=== PATIENT | male | born 1965 | race Caucasian/White ===

== ENCOUNTER 2018-05-20 09:02 | Emergency (ER) | payer OTHER, SELFPAY ==
[2018-05-20 09:04] VITALS: BP 184/109; PULSE 66; RESP 18; TEMP 36.4; O2SAT 97; BMI 30.4
--- NOTE | 2018-05-20 09:30 | ED.VISSUMM ---
- ER Visit Summary Date of Service: 05/20/18 Chief Complaint: Nosebleed History of Present Illness: The patient is a 52 M who developed a nosebleed from his left naris since 8 AM this morning. He denies recent URI symptoms or trauma. He is not on blood thinners. States he is to have nosebleeds as a child but has not had any significant nosebleeds as an adult. Physical Examination: Blood pressure is 184/109, other vitals normal. Patient sitting upright in bed. Head neck examination does reveal active bleeding from the left nare. No sign of facial trauma. Heart is regular rate and rhythm. Test Results: [] Emergency Department Course and Treatment: Afrin and Cetacaine is applied to the left nare. A 5.5 cm Rhino Rocket is placed. Repeat evaluation bleeding is controlled at this time. A 10 cc syringe was sent with family. Patient is to follow-up with ENT in 2-3 days. Repeat blood pressure is 173/107. Patient did take his blood pressure meds just prior to arrival. Treatment Plan: [] Disposition: Discharge Impression: Epistaxis left nare status post packing This note was generated with [employer] dictation software. It may contain incorrect words, spelling, and punctuation that were not noted in review of the chart prior to signing ED Disposition - Plan for ED Patient: Chief Complaint: Nosebleed Referrals: Festus Martin MD [Primary Care Provider] -
[2018-05-20] MEDS: Oxymetazoline 0.05% 1 SPRAY SPRAY.BTL 2 SPRAY NASAL (09:33)
[2018-05-20] MEDS: Tetracaine/Benzocaine/Butamben 1 APPLIC TOPICAL (09:33)
[2018-05-20 11:14] VITALS: BP 173/107; PULSE 61; RESP 16; O2SAT 97
--- NOTE | 2018-05-20 11:20 | ED.DEP ---
ED Disposition - Plan for ED Patient: Disposition: Home or Assisted Living Chief Complaint: Nosebleed Instructions: Nosebleed Prescriptions: Amoxicillin 500 mg PO TID #10 tablet Referrals: Yaw Ritter MD [STAFF PHYSICIAN] - 2 Days
[2018-05-20] MEDS: AMOXICILLIN 500 MG CAPSULE PO (11:34)
== END 2018-05-20 11:35 | disposition home or self-care (01) ==
PROVIDERS: Emergency Provider Emergency Medicine
DX: R04.0 Epistaxis (principal)
CPT/HCPCS: 30901; 99282

== ENCOUNTER → 2019-05-30 07:25 | Outpatient (CLI) | payer OTHER, SELFPAY ==
[2019-05-23 08:07] VITALS: BMI 31.4
--- NOTE | 2019-05-30 07:37 | CT_ITS ---
STUDY: CT ABDOMEN AND PELVIS WITH CONTRAST REASON FOR EXAM: Male, 53 years old. Umbilical and abdominal pain. RADIATION DOSAGE (If Supplied By Facility): CTDIvol = ( 16.39 ) mGy, DLP = ( 1292.85 ) mGycm TECHNIQUE: Transaxial images were obtained from the dome of the diaphragm to the symphysis pubis with oral contrast. Oral and amp;amp; IV Read i-CAT and amp;amp; 100mL Isovue-300 100 was administered. Sagittal and coronal images were reconstructed. Individualized dose optimization techniques were used for this CT. COMPARISON: Comparison is made with prior study dated November 14, 2014. FINDINGS: The visualized lung bases are unremarkable. The visualized portions of the heart are within normal limits. There is decreased attenuation of the liver consistent with steatosis. Findings suggestive of a hemangioma with peripheral enhancement in the inferior aspect of the right lobe of the liver. There are multiple small gallstones. Normal spleen. Normal pancreas. Normal bilateral adrenal glands. Punctate calcification in the midpole calyx of the right kidney. Punctate calcifications seen in the upper mid pole calyx of the left kidney as well as a 4 mm calculus in the lower pole of the left kidney. Normal visualized stomach. Normal small intestine. Normal colon. The appendix is visualized and appears normal. Normal abdominal aorta. Normal inferior vena cava. There is borderline retroperitoneal lymphadenopathy with enlarged nodes no greater than 10mm in the short axis diameter. Normal urinary bladder. There is a small umbilical hernia containing fat. Grade 1 anterolisthesis of L5 on S1 with spondylolysis of the pars interarticularis of the L5 vertebrae. Disc space narrowing and disc degeneration. CT/Abdomen/Pelvis WITH Contrast IMPRESSION: Small bilateral nonobstructive intrarenal calculi. Fatty infiltration of the liver. Multiple small gallstones. Findings suggestive of a hemangioma in the inferior aspect of the right lobe of the liver. Electronically Signed: Cayden Martinez, at 15:48 EDT , Service support ,
== END ==
PROVIDERS: Family Provider Nurse Practitioner; PCP Nurse Practitioner; Referring Provider Surgery; Visit Provider Surgery
DX: R10.9 Unspecified abdominal pain (principal); K42.9 Umbilical hernia without obstruction or gangrene; K43.9 Ventral hernia without obstruction or gangrene
CPT/HCPCS: 74177; Q9967

== ENCOUNTER 2019-06-18 07:28 | Day surgery (SDC) | payer OTHER, SELFPAY ==
--- NOTE | 2019-06-04 05:28 | HP_ITS ---
Intake Vital Signs 06/04/19 Body Mass Index (BMI) 31.4 Intake Visit Reasons: CT results/ discuss surgery Customer Acquisition Manager Required: No Is patient in pain?: No Allergies ofloxacin [From Floxin] Allergy (Verified 06/04/19 15:37) Other Medications amlodipine 10 mg tablet 10 mg PO DAILY #10 tab 05/23/19 [History Confirmed 06/04/19] indomethacin 50 mg capsule 50 mg PO TID PRN #30 cap 05/23/19 [History Confirmed 06/04/19] losartan 100 mg tablet 100 mg PO DAILY #30 tab 05/23/19 [History Confirmed 06/04/19] PFSH Medical History Umbilical hernia (Acute) Hemorrhoids (Acute) Abdominal pain (Acute) Arthritis (Acute) Gout (Acute) Tingling (Acute) Numbness (Acute) Surgical History Hx of ingrown nail (Acute) Family History Father Heart disease Prostate cancer Hypertension Sister Asthma Thyroid cancer Mother Hypertension High cholesterol Social History (Updated 06/04/19 @ 17:28 by Cullen Rosa MD) Smoking Status: Never smoker second hand exposure: No alcohol intake: current alcohol intake frequency: holidays/special occasions only substance use type: does not use caffeine: Yes what type of physical activity do you participate in: none frequency: does not exercise HPI HPI HPI: ARTI SQUIRES, is a 53 M who presents to the office today for HPI HPI Surgical H&P: Yes HPI: ARTI SQUIRES, is a 53 M who presents to the office today for ongoing surgical discussion regarding an umbilical hernia and a supraumbilical ventral hernia and abnormal findings on his CT scan. The CT scan results follow and we discussed the steatosis and the hemangioma and the kidney stones and the gallstones and the umbilical hernia. Abdomen/Pelvis CT [facility] [address] [place] [address] Abdomen/Pelvis WITH Contrast MR#: [id number] Name: ARTI SQUIRES [facility] #:[id number] : 1965M 53 From: Cayden Martinez MD PCP:Paige Mcfarlane, BUSINESS TECHNOLOGY ANALYST-C Status:REG CLI Study:Abdomen/Pelvis WITH Contrast Date of Exam:05/30/19 Exam#[id number] Ordering Dr: Cullen Rosa MD STUDY: CT ABDOMEN AND PELVIS WITH CONTRAST REASON FOR EXAM: Male, 53 years old. Umbilical and abdominal pain. RADIATION DOSAGE (If Supplied By Facility): CTDIvol = ( 16.39 ) mGy, DLP = ( 1292.85 ) mGycm TECHNIQUE: Transaxial images were obtained from the dome of the diaphragm to the symphysis pubis with oral contrast. Oral and amp;amp; IV Read i-CAT and amp;amp; 100mL Isovue-300 100 was administered. Sagittal and coronal images were reconstructed. Individualized dose optimization techniques were used for this CT. COMPARISON: Comparison is made with prior study dated November 14, 2014. FINDINGS: The visualized lung bases are unremarkable. The visualized portions of the heart are within normal limits. There is decreased attenuation of the liver consistent with steatosis. Findings suggestive of a hemangioma with peripheral enhancement in the inferior aspect of the right lobe of the liver. There are multiple small gallstones. Normal spleen. Normal pancreas. Normal bilateral adrenal glands. Punctate calcification in the midpole calyx of the right kidney. Punctate calcifications seen in the upper mid pole calyx of the left kidney as well as a 4 mm calculus in the lower pole of the left kidney. Normal visualized stomach. Normal small intestine. Normal colon. The appendix is visualized and appears normal. Normal abdominal aorta. Normal inferior vena cava. There is borderline retroperitoneal lymphadenopathy with enlarged nodes no greater than 10mm in the short axis diameter. Normal urinary bladder. There is a small umbilical hernia containing fat. Grade 1 anterolisthesis of L5 on S1 with spondylolysis of the pars interarticularis of the L5 vertebrae. Disc space narrowing and disc degeneration. CT/Abdomen/Pelvis WITH Contrast IMPRESSION: Small bilateral nonobstructive intrarenal calculi. Fatty infiltration of the liver. Multiple small gallstones. Findings suggestive of a hemangioma in the inferior aspect of the right lobe of the liver. Electronically Signed: Cayden Martinez, at 15:48 EDT , Service support , Intake Visit Reasons: Umbilical hernia Customer Acquisition Manager Required: No Is patient in pain?: No Allergies ofloxacin [From Floxin] Allergy (Verified 05/23/19 08:10) Other Medications amlodipine 10 mg tablet 10 mg PO DAILY #10 tab 05/23/19 [History Confirmed 05/23/19] indomethacin 50 mg capsule 50 mg PO TID PRN #30 cap 05/23/19 [History Confirmed 05/23/19] losartan 100 mg tablet 100 mg PO DAILY #30 tab 05/23/19 [History Confirmed 05/23/19] PFSH Medical History Umbilical hernia (Acute) Hemorrhoids (Acute) Abdominal pain (Acute) Arthritis (Acute) Gout (Acute) Tingling (Acute) Numbness (Acute) Surgical History Hx of ingrown nail (Acute) Family History Father Heart disease Prostate cancer Hypertension Sister Asthma Thyroid cancer Mother Hypertension High cholesterol Social History (Updated 05/23/19 @ 09:21 by Cullen Rosa MD) Smoking Status: Never smoker second hand exposure: No alcohol intake: current alcohol intake frequency: holidays/special occasions only substance use type: does not use caffeine: Yes what type of physical activity do you participate in: none frequency: does not exercise HPI HPI HPI: ARTI SQUIRES, is a 53 M who presents to the office today for surgical consultation regarding periumbilical pain bulging and a suspected umbilical hernia. The patient is referred by Evelia Rasmussen. The patient's primary care is usually provided by Paige Mcfarlane CNP. The patient works for the [employer] in [employer]. He remains physically active and does a significant amount of lifting and straining at home. In the recent past he had a illness causing nausea vomiting coughing. He developed abdominal pain. He could palpate an umbilical hernia but also thought that there was tenderness superior to that area and also some tenderness radiating down to the left groin. He states approximately 10 years ago he had a fall from a ladder with nasal fracture and wrist fracture and abdominal discomfort which at that point he was instructed possibly represented diverticulitis. He has never had a colonoscopy. He states that he recently did complete a Cologuard test which was negative. He has no family history of colon cancer or colon polyps. HPI HPI HPI: ARTI SQUIRES, is a 53 M who presents to the office today for ROS General General: No weight change, appetite, fatigue, colon cancer, breast cancer or weakness HEENT HEENT: No difficulty swallowing, eye injury, eye surgery, swollen glands or hoarseness Endo Endocrine: No thyroid disease, diabetes mellitus, thyroid cancer, Hair loss, heat intolerance or cold intolerance Skin Skin: No rash or changing moles Musc Musculoskeletal: Yes back problems, arthritis and gout; no rheumatoid arthritis or joint pain Cardio Cardiovascular: Yes high blood pressure; no murmur, pacemaker, heart disease, atrial fibrillation, heart attack, heart stent, palpitations, shortness of breat with exertion or chest pain Psych Psychiatric: Yes depression (on and off) and anxiety; no hearing voices Resp Respiratory: No shortness of breath, No sleep apnea, No cough, No COPD, No asthma, No emphysema, No wheezing Gastro Gastrointestinal: Yes abdominal pain, No nausea or vomiting, No diarrhea, No constipation, No blood in stool, No acid reflux, Yes hemorrhoids, No ulcers, No gallbladder problem, No black,tarry stools Tristian Hematologic: No blood thinners, No blood disorders, No bleeding, No anemia, No blood clots Neuro Neurologic: Yes numbness, Yes tingling, No weakness Exam Const General: cooperative, healthy appearing, comfortable, no acute distress Nutritional Appearance: obese Orientation: alert, awake, oriented x3 HENMT Head: normal to inspection Chest Chest palpation & inspection: normal inspection of the chest Resp Effort & Inspection: normal respiratory effort Auscultation: clear to auscultation bilaterally Cardio Rate: regular rate Rhythm: regular rhythm Heart Sounds: no murmurs GI Palpation: soft, no hepatosplenomegaly Auscultation: normal bowel sounds Other: Small umbilical hernia noted. On upright posture there is a palpable rubbery fibrous fullness slightly superior and lateral to the umbilicus by approximately 3 to 4 cm. Other: Testicles are descended. Right groin solid and intact. Left groin suggestion of some fibrofatty fullness possible lipoma. Inguinal floor otherwise seems solid Musc Cervical Spine: normal cervical lordosis Neuro Cognition: normal cognition Extrem General: no calf tenderness bilaterally Psych Affect: normal affect Assessment & Plan Problems 1. Periumbilical abdominal pain R10.33 2. Umbilical hernia without obstruction and without gangrene K42.9 Plan Periumbilical abdominal pain. Although there is a palpable umbilical hernia there seems to be at least one separate defect superior into the left. Difficult to cleanly appreciate body habitus at 225 pounds. Patient also has been complaining of some radiating pain toward the left groin. There is a questionable previous history of remote diverticulitis. I did discuss with him the concept of a colonoscopy and suggested that at some point he consider perhaps a baseline examination. I recommend a abdominal pelvic CT scan and then will have the patient return. On clinical exam I suspect possibly a lipoma left groin but I am not clinically detecting a distinct groin hernia. I suspect possibly a ventral hernia in addition to his umbilical hernia. He might be a future candidate for a preperitoneal expiration repair of the periumbilical area and linea Alba. He has had an opportunity to ask and have questions answered. I very much appreciate the kind opportunity of assisting with the surgical care. Subsequent to the CT scan we will have him return to discuss treatment options. CC: Paige Mcfarlane, REFINERY OPERATOR [employer] Cullen Rosa M.D., F.A.C.S. Orders Orders: Abdomen/Pelvis WITH Contrast Today K42.9, K43.9, R10.9 Coding Level of Care Code Off vis,new,level 3 Diagnoses Periumbilical abdominal pain R10.33 Abdominal location: periumbilical Umbilical hernia without obstruction and without gangrene K42.9 Obstruction and gangrene presence: without obstruction or gangrene 05/23/19 0921<Electronically signed by Cullen Rosa MD> Date Cullen Rosa MD ROS General General: No weight change, appetite, fatigue, colon cancer, breast cancer or weakness HEENT HEENT: No difficulty swallowing, eye injury, eye surgery, swollen glands or hoarseness Endo Endocrine: No thyroid disease, diabetes mellitus, thyroid cancer, Hair loss, heat intolerance or cold intolerance Skin Skin: No rash or changing moles Musc Musculoskeletal: Yes back problems, arthritis and gout; no rheumatoid arthritis or joint pain Cardio Cardiovascular: Yes high blood pressure; no murmur, pacemaker, heart disease, atrial fibrillation, heart attack, heart stent, palpitations, shortness of breat with exertion or chest pain Psych Psychiatric: Yes depression (on and off) and anxiety; no hearing voices Resp Respiratory: No shortness of breath, No sleep apnea, No cough, No COPD, No asthma, No emphysema, No wheezing Gastro Gastrointestinal: Yes abdominal pain, No nausea or vomiting, No diarrhea, No constipation, No blood in stool, No acid reflux, Yes hemorrhoids, No ulcers, No gallbladder problem, No black,tarry stools Tristian Hematologic: No blood thinners, No blood disorders, No bleeding, No anemia, No blood clots Neuro Neurologic: No weakness Exam Cardio Heart Sounds: no murmurs Assessment & Plan Problems 1. Gallstones K80.20 2. Ventral incisional hernia without obstruction or gangrene K43.2 Plan Today was actually almost a 40-minute for [id number] appointment. I reviewed the CT scan findings with him. On clinical examination however superior to the umbilicus clinically he has a diffuse firm fibrous nodularity. Then separate from that he has a distinct small umbilical hernia. On further questioning of him today it seems apparent that he does have some postprandial symptoms of some epigastric pressure occasional right flank pain. He may very well have been having bouts of biliary colic secondary to chronic cholecystitis. I suspect that he has a defect of his linea alba and will likely require a more extensive repair. I do not believe that this is a small umbilical hernia and I believe on my review of the CT scan there is a more extensive involvement and weakness noted. I am hesitant to combine a laparoscopic cholecystectomy within a laparoscopic ventral incisional herniorrhaphy with mesh. We discussed a variety of scenarios. My preference is to perform a laparoscopic cholecystectomy with selective cholangiograms. Barring any complication then in the subsequent near future from that procedure I would recommend a laparoscopic repair of his ventral hernia and umbilical hernia. He has had an opportunity to ask and have questions answered. He did present with his today. They will discuss treatment choices and proceed as noted. I very much appreciate the kind opportunity of assisting with his surgical care. CC: Paige Mcfarlane, PACO Rosa M.D., F.A.C.S. Coding Level of Care Code Off vis,est,level 3 Diagnoses Gallstones K80.20 Ventral incisional hernia without obstruction or gangrene K43.2 06/04/19 1728 <Electronically signed by Cullen tran MD> Date _ Cullen Rosa MD Patient review and update 3 days ago while working on a table saw the patient had a board kicked back into his abdomen. It is to the right and slightly inferior to the umbilicus. There is ecchymosis with a very small superficial non-bleeding abrasion. I have reviewed this I believe that we can do an appropriate abdominal prep staying clear. As noted today is anticipated laparoscopic cholecystectomy the patient does have a umbilical and a supraumbilical hernia. I do not anticipate addressing those today and so will not be placing mesh. The patient has had an opportunity to ask and have questions answered and we will proceed as noted. Cullen Rosa M.D., F.A.C.S.
[2019-06-04 15:38] VITALS: BMI 31.4
[2019-06-14 09:24] LABS: Hematocrit 45.7 % (40-54); Hemoglobin 14.5 g/dL (13.0-16.5); Mean Corp Hgb Conc 31.7 g/dL (32-36); Mean Corpuscular Hgb 27.8 pg (27.0-32.0); Mean Corpuscular Volume 87.5 fL (80-94); Mean Platelet Vol. 10.1 fl (6.2-12.0); Platelet Count 369 K/mm3 (150-450); RBC Distribution Width CV 13.4 % (11.6-14.6); RBC Distribution Width SD 42.9 fl (35.1-43.9); Red Blood Count 5.22 M/mm3 (4.6-6.2); White Blood Count 8.6 K/mm3 (4.4-11.0)
[2019-06-14 09:54] LABS: BUN 23 mg/dL (7-18); Creatinine, Serum 0.99 mg/dL (0.70-1.30); Glucose 104 mg/dL (74-106)
[2019-06-14 09:55] LABS: ALB/GLOB Ratio 1.1 RATIO (0.9-2.4); AST(SGOT) 16 U/L (15-37); Alanine Aminotransfer ALT/SGPT 28 U/L (16-61); Albumin, Serum 3.9 g/dL (3.2-5.0); Alkaline Phosphatase 94 U/L (45-117); Anion Gap 5 (5-15); BUN/Creat Ratio 23.3 RATIO (10-20); Calcium,Total 9.4 mg/dL (8.5-10.1); Chloride 105 mmol/L (98-107); EST Glomerular Filtration Rate 84 mL/min (>60); Est Glom Filt Rate - Afr Amer 101 mL/min (>60); Globulin 3.5 g/dL (2.2-4.2); Potassium 3.9 mmol/L (3.5-5.1); Protein, Total 7.4 g/dL (6.4-8.2); Sodium Level 141 mmol/L (136-145)
[2019-06-18] VITALS (10 sets, daily range): BP systolic 130–157; BP diastolic 69–97; PULSE 57–79; RESP 16; TEMP 36.1–36.7; O2SAT 92–97; BMI 32.9
--- NOTE | 2019-06-18 08:32 | DCINST_ITS ---
Discharge Diet: Light diet - advance as tolerated - if you have questions about your diet instructions, please talk to you doctor. Discharge Activity: May Not Drive - for 3-5 days or while taking narcotic pain medicine. May shower in (days): 1 Lifting Restrictions: 10 pounds Call your doctor if your incision/area has: Continuous Slow Oozing, Sudden Increased Bleeding, Increased Pain/ Swelling, Increased Redness, Foul Smelling Discharge Call your doctor if you observe: Fever of 101 or Higher Suture Line Care: Avoid Pulling/Pushing, Avoid Pinching/Bending Additional Dressing/Incision Instructions:: Change or remove dressing in 4 days. Leave steri-strips in place for 1 week. Allergies/Adverse Reactions: Allergies ofloxacin [From Floxin] Allergy (Verified 06/12/19 09:02) Other Medications to take at Discharge amlodipine 10 mg tablet 10 mg PO DAILY #10 tab 05/23/19 indomethacin 50 mg capsule 50 mg PO TID PRN #30 cap 05/23/19 losartan 100 mg tablet 100 mg PO DAILY #30 tab 05/23/19 Fexofenadine HCl [Madeline Allergy] 180 mg PO PRN PRN 06/12/19 Primary Care Physician: Paige Mcfarlane, ARSH-C [Primary Care Provider] - Test Results: Test results from this visit will be discussed in further detail at your follow- up appointment, if applicable. Please Follow Up With: Cullen Rosa MD - [phone] When: Call to make an appointment to be seen in about 10 days.
[2019-06-18] MEDS: Lactated Ringers 1,000 ML 100 ML IV ×2 (08:48→11:16)
[2019-06-18] MEDS: Cefazolin 2 GM in 0.9% Normal Saline 100 ML IV (09:02)
--- NOTE | 2019-06-18 09:20 | GALL_PTH ---
PATIENT: ARTI SQUIRES LOC[place] [facility] [place][id number] AGE/SX: 53/M ROOM: RE06/18/[address]: Dr. Cullen Rosa MD : 1965 BED: DIS: 06/18/2019 SPEC #: [id number] RECD: 06/18/19 11:31 STATUS: AMPARO WENDY #: [id number] LINDA: 06/18/19 09:[address]: Cullen Rosa DEPT: SURGICAL PATHOLOGY RECD BY: Morenita Smith ENTERED: 06/18/19 11:57 SP TYPE: ARMANI PATEL DR: Paige Mcfarlane, SPLITTING MACHINE TENDER-Gilbert Tissues: Gallbladder, NOS Procedures: Surgery Specimen Level III HEADER OPERATION: Laparoscopic cholecystectomy with IOC PRE-OP DIAGNOSIS: Gallstones TISSUE SUBMITTED: Gallbladder MICROSCOPIC DIAGNOSIS Gallbladder, cholecystectomy: Chronic cholecystitis, cholelithiasis and cholesterolosis. SJ:vero 06/19/19 MICROSCOPIC DESCRIPTION Slides are reviewed. GROSS DESCRIPTION Received is one container labeled with the patient's name and designated gallbladder. The specimen consists of a gallbladder measuring 8 cm in length and up to 3.5 cm in diameter. The external surface is pink-wilkinson, smooth and glistening for the most part. Focally it is granular, hemorrhagic and contains cautery artifact. The gallbladder contains green-yellow mucoid bile and one round, mulberry stone measuring 1.5 cm in diameter. The mucosa also shows several yellowish streaks consistent with cholesterolosis. The mucosa is bile-stained and without any mass lesions. The gallbladder wall measures up to 0.3 cm in thickness. Freight Solicitor sections from the gallbladder and the cystic duct are submitted in one cassette. / SJ:vero 06/18/19 TC:3 [facility]: [id number]
--- NOTE | 2019-06-18 09:20 | RAD_ITS ---
STUDY: INTRAOPERATIVE CHOLANGIOGRAM. REASON FOR EXAM: Male, 53 years old. Laparoscopic cholecystectomy. FLUOROSCOPY TIME (if supplied): ( 12.3 seconds ) minutes/seconds TECHNIQUE: Intraoperative cholangiogram was performed by the surgeon. Imaging was submitted. COMPARISON: None. FINDINGS: The visualized intrahepatic biliary ducts are unremarkable. The common bile duct is not dilated. There is free flow of contrast into the duodenum. RAD/Cholangiogram/ O R,Initial IMPRESSION: Unremarkable intraoperative cholangiogram. Electronically Signed: Cayden Martinez, at 13:50 EDT , Service support ,
--- NOTE | 2019-06-18 10:10 | OP.PCM_ITS ---
Problem List (1) Gallstones Status: Acute Report of Operation Date of Procedure: 06/18/19 Pre-Operative Diagnosis: Chronic cholecystitis cholelithiasis Post-Operative Diagnosis: Chronic cholecystitis cholelithiasis Surgery/Procedure Performed:: Laparoscopic cholecystectomy with cholangiography Description of Surgical Findings:: Timeout and informed consent was obtained. 53-year-old gentleman was taken the operating placement table underwent general endotracheal intubation anesthesia. Ancef 2 g given intravenous preoperatively. The abdomen was sterilely prepped and draped. To the right of the umbilicus a OpSite dressing was placed to occlude access to a small abrasion. 0.5% Marcaine was used as a local anesthetic throughout the procedure total 30 cc was used. Skin sites were pre- anesthetized. A vertical infraumbilical incision was created holding sutures of 0 Vicryl placed varies needle inserted saline drop test performed the abdomen was insufflated with CO2 to a pressure of 10 mid cervical pressure Gracie trocar inserted 10 lap scope inserted no concern trocar injuries and direct physician the abdomen is inspected. There is evidence of a hernia at the superior portion of the umbilicus with incarcerated omentum. Patient had sick quite a fatty omentum. There was a barrel belly. Getting access laxity to the liver noted to be filled with steatohepatitis was difficult. 5-minute trocar sites were placed in the epigastric mid abdomen the right upper quadrant. Gallbladder distracted with mild adhesions of omentum these were dissected free the infundibular was dissected free until clearly the cystic duct and cystic artery were remaining. 2 hemo-lock clips were placed on the cystic artery proximally distally prior to transecting it. Hem-o-aubrey clip was placed on the cystic duct incision made in the cystic duct and through a 14-gauge Angiocath a cholangiogram catheter was placed fluoroscopically control cholangiograms were obtained. This demonstrated normal ductal anatomy. The clench Heri catheter was removed to Hem-o-aubrey clips were placed on the cystic duct stump prior to transecting it. The gallbladder was then dissected free from the liver bed using electrocautery. Complete hemostasis was intact. The gallbladder was placed in a retrieval bag. The right upper quadrant was irrigated and aspirated free of excess fluid. It is of note that the gallbladder and the removal from the liver bed was noted to be quite fatty. There appeared to be almost edema pain plane possibly suggestive chronic inflammation. On inspection of the umbilical area there was incarcerated omentum within the umbilical hernia. The incision that I had created was a inferior to this. In order to get the gallbladder out the skin and fascia incision had to be l engthened. That then allowed for removal of the gallbladder. I then had to close the fascia with a running 0 Vicryl. The abdomen was allowed to deflate the CO2. Skin edges approximate interrupted 4 Monocryl subdermal stitches. Steri-Strips Telfa and OpSite dressings applied. Sponge and instrument and needle counts were reported the surgeon to be correct. Blood loss was minimal. The patient tolerated the procedure well was taken to recovery room in satisfactory condition without apparent complication. Specimens gallbladder. Drains none. Blood loss minimal. Cullen Rosa M.D., F.A.C.S. Type of Anesthesia:: General Anesthesiologist: Argelia Jones
[2019-06-18] MEDS: Bupivacaine Mpf 0.5% 30 ML VIAL (10:14)
[2019-06-18] MEDS: HYDROcodone Bitartrate/Apap 5/325 Tablet PO (11:42)
== END 2019-06-18 13:40 | disposition home or self-care (01) ==
LOC: SDC 07:29 → AC 07:29
PROVIDERS: Family Provider Nurse Practitioner; PCP Nurse Practitioner; Referring Provider Surgery; Visit Provider Surgery
PROC: (CPT 47610; principal; 2019-06-18 09:00)
DX: K80.10 Calculus of gallbladder with chronic cholecystitis without obstruction (principal); R10.33 Periumbilical pain; K43.2 Incisional hernia without obstruction or gangrene; K42.9 Umbilical hernia without obstruction or gangrene; E66.9 Obesity, unspecified; Z88.1 Allergy status to other antibiotic agents; Z68.31 Body mass index [BMI] 31.0-31.9, adult
CPT/HCPCS: 47563; 36415; 74300; 76000; 80053; 85027; 88304; 93005; J7120; J2405

== ENCOUNTER 2019-08-14 07:23 | Day surgery (SDC) | payer OTHER, SELFPAY ==
--- NOTE | 2019-06-04 05:28 | HP_ITS ---
Intake Vital Signs 06/04/19 Body Mass Index (BMI) 31.4 Intake Visit Reasons: CT results/ discuss surgery Pelt Grader Required: No Is patient in pain?: No Allergies ofloxacin [From Floxin] Allergy (Verified 06/04/19 15:37) Other Medications amlodipine 10 mg tablet 10 mg PO DAILY #10 tab 05/23/19 [History Confirmed 06/04/19] indomethacin 50 mg capsule 50 mg PO TID PRN #30 cap 05/23/19 [History Confirmed 06/04/19] losartan 100 mg tablet 100 mg PO DAILY #30 tab 05/23/19 [History Confirmed 06/04/19] PFSH Medical History Umbilical hernia (Acute) Hemorrhoids (Acute) Abdominal pain (Acute) Arthritis (Acute) Gout (Acute) Tingling (Acute) Numbness (Acute) Surgical History Hx of ingrown nail (Acute) Family History Father Heart disease Prostate cancer Hypertension Sister Asthma Thyroid cancer Mother Hypertension High cholesterol Social History (Updated 06/04/19 @ 17:28 by Cullen Rosa MD) Smoking Status: Never smoker second hand exposure: No alcohol intake: current alcohol intake frequency: holidays/special occasions only substance use type: does not use caffeine: Yes what type of physical activity do you participate in: none frequency: does not exercise HPI HPI HPI: ARTI SQUIRES, is a 53 M who presents to the office today for HPI HPI Surgical H&P: Yes HPI: ARTI SQUIRES, is a 53 M who presents to the office today for ongoing surgical discussion regarding an umbilical hernia and a supraumbilical ventral hernia and abnormal findings on his CT scan. The CT scan results follow and we discussed the steatosis and the hemangioma and the kidney stones and the gallstones and the umbilical hernia. Abdomen/Pelvis CT [facility] Services [address] [place] [address] Abdomen/Pelvis WITH Contrast MR#: [id number] Name: ARTI SQUIRES [facility] #:[id number] : 1965M 53 From: Cayden Martinez MD PCP:Paige Mcfarlane, RACQUET MAKER-C Status:REG CLI Study:Abdomen/Pelvis WITH Contrast Date of Exam:05/30/19 Exam#[id number] Ordering Dr: Cullen Rosa MD STUDY: CT ABDOMEN AND PELVIS WITH CONTRAST REASON FOR EXAM: Male, 53 years old. Umbilical and abdominal pain. RADIATION DOSAGE (If Supplied By Facility): CTDIvol = ( 16.39 ) mGy, DLP = ( 1292.85 ) mGycm TECHNIQUE: Transaxial images were obtained from the dome of the diaphragm to the symphysis pubis with oral contrast. Oral and amp;amp; IV Read i-CAT and amp;amp; 100mL Isovue-300 100 was administered. Sagittal and coronal images were reconstructed. Individualized dose optimization techniques were used for this CT. COMPARISON: Comparison is made with prior study dated November 14, 2014. FINDINGS: The visualized lung bases are unremarkable. The visualized portions of the heart are within normal limits. There is decreased attenuation of the liver consistent with steatosis. Findings suggestive of a hemangioma with peripheral enhancement in the inferior aspect of the right lobe of the liver. There are multiple small gallstones. Normal spleen. Normal pancreas. Normal bilateral adrenal glands. Punctate calcification in the midpole calyx of the right kidney. Punctate calcifications seen in the upper mid pole calyx of the left kidney as well as a 4 mm calculus in the lower pole of the left kidney. Normal visualized stomach. Normal small intestine. Normal colon. The appendix is visualized and appears normal. Normal abdominal aorta. Normal inferior vena cava. There is borderline retroperitoneal lymphadenopathy with enlarged nodes no greater than 10mm in the short axis diameter. Normal urinary bladder. There is a small umbilical hernia containing fat. Grade 1 anterolisthesis of L5 on S1 with spondylolysis of the pars interarticularis of the L5 vertebrae. Disc space narrowing and disc degeneration. CT/Abdomen/Pelvis WITH Contrast IMPRESSION: Small bilateral nonobstructive intrarenal calculi. Fatty infiltration of the liver. Multiple small gallstones. Findings suggestive of a hemangioma in the inferior aspect of the right lobe of the liver. Electronically Signed: Cayden Martinez, at 15:48 EDT , Service support , Intake Visit Reasons: Umbilical hernia Pelt Grader Required: No Is patient in pain?: No Allergies ofloxacin [From Floxin] Allergy (Verified 05/23/19 08:10) Other Medications amlodipine 10 mg tablet 10 mg PO DAILY #10 tab 05/23/19 [History Confirmed 05/23/19] indomethacin 50 mg capsule 50 mg PO TID PRN #30 cap 05/23/19 [History Confirmed 05/23/19] losartan 100 mg tablet 100 mg PO DAILY #30 tab 05/23/19 [History Confirmed 05/23/19] PFSH Medical History Umbilical hernia (Acute) Hemorrhoids (Acute) Abdominal pain (Acute) Arthritis (Acute) Gout (Acute) Tingling (Acute) Numbness (Acute) Surgical History Hx of ingrown nail (Acute) Family History Father Heart disease Prostate cancer Hypertension Sister Asthma Thyroid cancer Mother Hypertension High cholesterol Social History (Updated 05/23/19 @ 09:21 by Cullen Rosa MD) Smoking Status: Never smoker second hand exposure: No alcohol intake: current alcohol intake frequency: holidays/special occasions only substance use type: does not use caffeine: Yes what type of physical activity do you participate in: none frequency: does not exercise HPI HPI HPI: ARTI SQUIRES, is a 53 M who presents to the office today for surgical consultation regarding periumbilical pain bulging and a suspected umbilical hernia. The patient is referred by Evelia Rasmussen. The patient's primary care is usually provided by Paige Mcfarlane CNP. The patient works for the [employer] in [place]. He remains physically active and does a significant amount of lifting and straining at home. In the recent past he had a illness causing nausea vomiting coughing. He developed abdominal pain. He could palpate an umbilical hernia but also thought that there was tenderness superior to that area and also some tenderness radiating down to the left groin. He states approximately 10 years ago he had a fall from a ladder with nasal fracture and wrist fracture and abdominal discomfort which at that point he was instructed possibly represented diverticulitis. He has never had a colonoscopy. He states that he recently did complete a Cologuard test which was negative. He has no family history of colon cancer or colon polyps. HPI HPI HPI: ARTI SQUIRES, is a 53 M who presents to the office today for ROS General General: No weight change, appetite, fatigue, colon cancer, breast cancer or weakness HEENT HEENT: No difficulty swallowing, eye injury, eye surgery, swollen glands or hoarseness Endo Endocrine: No thyroid disease, diabetes mellitus, thyroid cancer, Hair loss, heat intolerance or cold intolerance Skin Skin: No rash or changing moles Musc Musculoskeletal: Yes back problems, arthritis and gout; no rheumatoid arthritis or joint pain Cardio Cardiovascular: Yes high blood pressure; no murmur, pacemaker, heart disease, atrial fibrillation, heart attack, heart stent, palpitations, shortness of breat with exertion or chest pain Psych Psychiatric: Yes depression (on and off) and anxiety; no hearing voices Resp Respiratory: No shortness of breath, No sleep apnea, No cough, No COPD, No asthma, No emphysema, No wheezing Gastro Gastrointestinal: Yes abdominal pain, No nausea or vomiting, No diarrhea, No constipation, No blood in stool, No acid reflux, Yes hemorrhoids, No ulcers, No gallbladder problem, No black,tarry stools Tristian Hematologic: No blood thinners, No blood disorders, No bleeding, No anemia, No blood clots Neuro Neurologic: Yes numbness, Yes tingling, No weakness Exam Const General: cooperative, healthy appearing, comfortable, no acute distress Nutritional Appearance: obese Orientation: alert, awake, oriented x3 HENMT Head: normal to inspection Chest Chest palpation & inspection: normal inspection of the chest Resp Effort & Inspection: normal respiratory effort Auscultation: clear to auscultation bilaterally Cardio Rate: regular rate Rhythm: regular rhythm Heart Sounds: no murmurs GI Palpation: soft, no hepatosplenomegaly Auscultation: normal bowel sounds Other: Small umbilical hernia noted. On upright posture there is a palpable rubbery fibrous fullness slightly superior and lateral to the umbilicus by approximately 3 to 4 cm. Other: Testicles are descended. Right groin solid and intact. Left groin suggestion of some fibrofatty fullness possible lipoma. Inguinal floor otherwise seems solid Musc Cervical Spine: normal cervical lordosis Neuro Cognition: normal cognition Extrem General: no calf tenderness bilaterally Psych Affect: normal affect Assessment & Plan Problems 1. Periumbilical abdominal pain R10.33 2. Umbilical hernia without obstruction and without gangrene K42.9 Plan Periumbilical abdominal pain. Although there is a palpable umbilical hernia there seems to be at least one separate defect superior into the left. Difficult to cleanly appreciate body habitus at 225 pounds. Patient also has been complaining of some radiating pain toward the left groin. There is a questionable previous history of remote diverticulitis. I did discuss with him the concept of a colonoscopy and suggested that at some point he consider perhaps a baseline examination. I recommend a abdominal pelvic CT scan and then will have the patient return. On clinical exam I suspect possibly a lipoma left groin but I am not clinically detecting a distinct groin hernia. I suspect possibly a ventral hernia in addition to his umbilical hernia. He might be a future candidate for a preperitoneal expiration repair of the periumbilical area and linea Alba. He has had an opportunity to ask and have questions answered. I very much appreciate the kind opportunity of assisting with the surgical care. Subsequent to the CT scan we will have him return to discuss treatment options. CC: Paige Mcfarlane, [employer]OR Cullen Rosa M.D., F.A.C.S. Orders Orders: Abdomen/Pelvis WITH Contrast Today K42.9, K43.9, R10.9 Coding Level of Care Code Off vis,new,level 3 Diagnoses Periumbilical abdominal pain R10.33 Abdominal location: periumbilical Umbilical hernia without obstruction and without gangrene K42.9 Obstruction and gangrene presence: without obstruction or gangrene 05/23/19 0921<Electronically signed by Cullen Rosa MD> Date Cullen Rosa MD ROS General General: No weight change, appetite, fatigue, colon cancer, breast cancer or weakness HEENT HEENT: No difficulty swallowing, eye injury, eye surgery, swollen glands or hoarseness Endo Endocrine: No thyroid disease, diabetes mellitus, thyroid cancer, Hair loss, heat intolerance or cold intolerance Skin Skin: No rash or changing moles Musc Musculoskeletal: Yes back problems, arthritis and gout; no rheumatoid arthritis or joint pain Cardio Cardiovascular: Yes high blood pressure; no murmur, pacemaker, heart disease, atrial fibrillation, heart attack, heart stent, palpitations, shortness of breat with exertion or chest pain Psych Psychiatric: Yes depression (on and off) and anxiety; no hearing voices Resp Respiratory: No shortness of breath, No sleep apnea, No cough, No COPD, No asthma, No emphysema, No wheezing Gastro Gastrointestinal: Yes abdominal pain, No nausea or vomiting, No diarrhea, No constipation, No blood in stool, No acid reflux, Yes hemorrhoids, No ulcers, No gallbladder problem, No black,tarry stools Tristian Hematologic: No blood thinners, No blood disorders, No bleeding, No anemia, No blood clots Neuro Neurologic: No weakness Exam Cardio Heart Sounds: no murmurs Assessment & Plan Problems 1. Gallstones K80.20 2. Ventral incisional hernia without obstruction or gangrene K43.2 Plan Today was actually almost a 40-minute for [id number] appointment. I reviewed the CT scan findings with him. On clinical examination however superior to the umbilicus clinically he has a diffuse firm fibrous nodularity. Then separate from that he has a distinct small umbilical hernia. On further questioning of him today it seems apparent that he does have some postprandial symptoms of some epigastric pressure occasional right flank pain. He may very well have been having bouts of biliary colic secondary to chronic cholecystitis. I suspect that he has a defect of his linea alba and will likely require a more extensive repair. I do not believe that this is a small umbilical hernia and I believe on my review of the CT scan there is a more extensive involvement and weakness noted. I am hesitant to combine a laparoscopic cholecystectomy within a laparoscopic ventral incisional herniorrhaphy with mesh. We discussed a variety of scenarios. My preference is to perform a laparoscopic cholecystectomy with selective cholangiograms. Barring any complication then in the subsequent near future from that procedure I would recommend a laparoscopic repair of his ventral hernia and umbilical hernia. He has had an opportunity to ask and have questions answered. He did present with his today. They will discuss treatment choices and proceed as noted. I very much appreciate the kind opportunity of assisting with his surgical care. CC: Paige Mcfarlane, PACO Rosa M.D., F.A.C.S. Coding Level of Care Code Off vis,est,level 3 Diagnoses Gallstones K80.20 Ventral incisional hernia without obstruction or gangrene K43.2 06/04/19 1728 <Electronically signed by Cullen tran MD> Date _ Cullen Rosa MD
[2019-06-04 15:38] VITALS: BMI 31.4
[2019-06-18 08:00] VITALS: BMI 32.9
[2019-08-09 12:39] LABS: Hematocrit 43.4 % (40-54); Hemoglobin 13.9 g/dL (13.0-16.5); Mean Corpuscular Hgb 27.8 pg (27.0-32.0); Mean Corpuscular Volume 86.8 fL (80-94); Mean Platelet Vol. 9.8 fl (6.2-12.0); Platelet Count 343 K/mm3 (150-450); RBC Distribution Width CV 13.4 % (11.6-14.6); RBC Distribution Width SD 41.9 fl (35.1-43.9); White Blood Count 8.7 K/mm3 (4.4-11.0)
[2019-08-09 13:04] LABS: Anion Gap 3 (5-15); BUN 21 mg/dL (7-18); BUN/Creat Ratio 14.4 RATIO (10-20); Calcium,Total 9.1 mg/dL (8.5-10.1); Chloride 109 mmol/L (98-107); Creatinine, Serum 1.46 mg/dL (0.70-1.30); EST Glomerular Filtration Rate 53 mL/min (>60); Est Glom Filt Rate - Afr Amer 65 mL/min (>60); Glucose 105 mg/dL (74-106); Potassium 3.8 mmol/L (3.5-5.1); Sodium Level 142 mmol/L (136-145)
[2019-08-14] VITALS (11 sets, daily range): BP systolic 98–158; BP diastolic 68–85; PULSE 58–78; RESP 16–18; TEMP 36.2–36.7; O2SAT 91–97; BMI 32.4
[2019-08-14] MEDS: Lactated Ringers 1,000 ML 15 ML IV ×2 (07:51→09:45)
--- NOTE | 2019-08-14 08:17 | HP.PCM_ITS ---
Problem List (1) Ventral incisional hernia without obstruction or gangrene Status: Acute History of Present Illness Date of Admission: 08/14/19 The patient is a 53 year old M who presents for a planned laparoscopic repair of a umbilical and supraumbilical ventral hernia. On June 18 patient had a laparoscopic cholecystectomy. He had had a symptomatic hernia prior to that but due to the planned extensiveness of the repair and findings that were felt to be consistent with intermittent biliary colic like to proceed with the cholecystectomy first and then proceed with a more definitive repair of his ventral hernia. His complaint emanates from the umbilicus superiorly. His most recent incision was infraumbilical and the hernia was not interacted with at that time. He states particularly when he coughs that he has discomfort at the [place] portion of the umbilicus. Otherwise is done well since his cholecystectomy. Past Medical History Medical History: Medical History (Last Reviewed 06/04/19 @ 15:37 by Anaid Rhodes) Ventral incisional hernia without obstruction or gangrene (Acute) K43.2 Gallstones (Acute) K80.20 Umbilical hernia (Acute) K42.9 Hemorrhoids (Acute) K64.9 Abdominal pain (Acute) R10.9 Arthritis (Acute) M19.90 Gout (Acute) M10.9 Tingling (Acute) R20.2 Numbness (Acute) R20.0 Allergies ofloxacin [From Floxin] Allergy (Verified 08/14/19 07:46) Other Home Medications: Ambulatory Orders Medication Instructions Recorded amlodipine 10 mg tablet 10 mg PO DAILY #10 tab 05/23/19 indomethacin 50 mg capsule 50 mg PO TID PRN #30 cap 05/23/19 losartan 100 mg tablet 100 mg PO DAILY #30 tab 05/23/19 Fexofenadine HCl [Madeline Allergy] 180 mg PO PRN PRN 06/12/19 Surgical History: Surgical History (Last Reviewed 06/04/19 @ 15:37 by Anaid Rhodes) Hx of ingrown nail (Acute) Z87.2 bilateral 1st digit Smoking Status: Never smoker Tobacco Use: Non-smoker Review of Systems Constitutional: Denies: Anorexia HEENT: Denies: Difficulty Swallowing Cardiovascular: Denies: Chest Pain Respiratory: Denies: Shortness of Breath Gastrointestinal: Denies: Abdominal Pain, Melena Endocrine: Denies: Change in Body Habitus VTE Information - Inpt Only VTE Present on Admission: No - Physical Exam Vitals/I&O's: Vital Signs Temp Pulse Resp BP Pulse Ox 98.1 F 67 16 142/84 H 95 08/14/19 07:46 08/14/19 07:46 08/14/19 07:46 08/14/19 07:46 08/14/19 07:46 Oxygen Delivery Method Room Air Weight: 232 lb 9.403 oz Body Mass Index (BMI) 32.4 General: Alert, Oriented x3, Cooperative, No apparent distress Oral: Moist Mucosa Lungs: Clear to auscultation Cardiovascular: Regular rate, Regular Rhythm Abdomen: Bowel Sounds Present, Soft, - - Healing infraumbilical incision and laparoscopic port site incisions, palpable defect at the umbilicus and superiorly, no focal mass, no tenderness, Extremities: No Calf Tenderness Neurological: - - Normal cognition Psych/Mental Status: Normal Affect Current Medications Lactated Ringer's () 1,000 mls @ 15 mls/hr IV .Q48H KRISTIE Stop: 08/16/19 06:59 Last Admin: 08/14/19 07:51 Dose: 15 mls/hr Documented by: Assessment/Plan All Active Problems (Last Reviewed 06/04/19 @ 15:37 by Anaid Rhodes) Ventral incisional hernia without obstruction or gangrene (Acute) Gallstones (Acute) Hx of ingrown nail (Acute) Umbilical hernia (Acute) Hemorrhoids (Acute) Abdominal pain (Acute) Arthritis (Acute) Gout (Acute) Tingling (Acute) Numbness (Acute) I have offered the patient a laparoscopic ventral incisional herniorrhaphy. He is aware that we will utilize mesh. He is aware of the technique, benefits, r isks, alternatives. He has had an opportunity to ask and have questions answered. We will proceed as noted. Cullen Rosa M.D., F.A.C.S.
--- NOTE | 2019-08-14 08:24 | DCINST_ITS ---
Discharge Diet: Light diet - advance as tolerated - if you have questions about your diet instructions, please talk to you doctor. Discharge Activity: May Not Drive - for 1 week or while taking narcotic pain medicine. May shower in (days): 1 Lifting Restrictions: 10 pounds Call your doctor if your incision/area has: Continuous Slow Oozing, Sudden Increased Bleeding, Increased Pain/ Swelling, Increased Redness, Foul Smelling Discharge Call your doctor if you observe: Fever of 101 or Higher Suture Line Care: Avoid Pulling/Pushing, Avoid Pinching/Bending Additional Dressing/Incision Instructions:: Change or remove dressing in 4 days. Leave steri-strips in place for 1 week. Allergies/Adverse Reactions: Allergies ofloxacin [From Floxin] Allergy (Verified 08/14/19 07:46) Other Medications to take at Discharge amlodipine 10 mg tablet 10 mg PO DAILY #10 tab 05/23/19 indomethacin 50 mg capsule 50 mg PO TID PRN #30 cap 05/23/19 losartan 100 mg tablet 100 mg PO DAILY #30 tab 05/23/19 Fexofenadine HCl [Madeline Allergy] 180 mg PO PRN PRN 06/12/19 Hydrocodone Bitart/Apap 5-325 [[place] 5MG-325MG] 1 tablet PO Q6H PRN PRN 3 Days #8 tablet 08/14/19 The following prescriptions were given: Hydrocodone Bitart/Apap 5-325 [[place] 5MG-325MG] 1 tablet PO Q6H PRN PRN 3 Days #8 tablet PRN Reason: Pain Transmission Status: Sent to [facility]30 Orders to be completed after discharge: Basic Metabolic Profile (BMP) Time Frame: 08/07/19, Facility: [facility], Location: Laboratory CBC-Complete Blood Cnt No Diff Time Frame: 08/07/19, Facility: [facility], Location: Laboratory Primary Care Physician: Paige Mcfarlane NP-C [Primary Care Provider] - Test Results: Test results from this visit will be discussed in further detail at your follow- up appointment, if applicable. Please Follow Up With: Cullen Rosa MD - [phone] When: Call to make an appointment to be seen in about 10 days.
[2019-08-14] MEDS: Cefazolin 2 GM in 0.9% Normal Saline 100 ML IV (08:36)
[2019-08-14] MEDS: BUPIVACAINE LIPOSOME/PF 20 ML VIAL OPERA.SITE (09:58)
[2019-08-14] MEDS: Bupivacaine Mpf 0.5% 30 ML VIAL (09:58)
--- NOTE | 2019-08-14 10:06 | PCM.OPRPT ---
Problem List (1) Ventral incisional hernia without obstruction or gangrene Status: Acute Report of Operation Date of Procedure: 08/14/19 Pre-Operative Diagnosis: Incarcerated supraumbilical ventral hernia Post-Operative Diagnosis: Multi defect incarcerated supraumbilical ventral hernia Surgery/Procedure Performed:: Laparoscopic ventral herniorrhaphy with ventral light ST mesh. Reference #[id number]. Lot number [id number]. Expiry date 02/22/2021. Secure strap lot number [id number]. Expiry date February 2021 Description of Surgical Findings:: Timeout and informed consent was obtained. 53-year-old gentleman was taken operating placement table underwent general endotracheal intubation anesthesia. Ancef 2 g given intravenously preoperatively. The abdomen sterilely prepped draped. Ioban draping was used. 30 cc of 0.5% Marcaine was diluted with 50 cc of saline and added to 20 cc of Exparel. This was used as a local anesthetic. Skin sites were pre-anesthetized. The left upper quadrant 5 mm incision was created and using a Visiport type technology direct access was gained to the abdomen. The abdomen was insufflated with CO2 to pressure 10 circular pressure. There is evidence of incarcerated omentum within a multi-defect superior to the umbilicus. 5-minute trochars were placed in the left midabdomen. 2 more from a trochars in the right midabdomen. The omentum was dissected free using electrocauterize scissors. Hemostasis was intact. 4 separate defects were noted. I selected a 17.8 x 22.[address] mesh. I did shorten that both lengthwise and with ferrer. I then put 4 corner sutures of 2-0 Prolene. I placed a telemeter trocar supraumbilically and then inserted the mesh through that trocar. I unfurled the mesh. Using a grainy needle and stab incisions the sutures were used to parachuted the mesh up to the abdominal wall. Very nice positional lie was achieved. The sutures were secured. I then used secure strap at 2 cm avulsed completely around the mesh. I used secure strap to complete the mesh to avoid any seroma formation. Excellent coverage of the defect area was achieved. In the right lower quadrant there was some bleeding from the inferior epigastric which I gently secured using a 0 Vicryl grainy needle and a simple suture to just gently elevate that area. There is been some preperitoneal fatty tissue inferiorly that I draped back over the mesh and secured with a secure strap. I then performed a bilateral tap block using laparoscopic visualization I put local in the transabdominal plane at 2 cm intervals clip completely bilateral subcostally and lateral abdomen. I felt that index achieved an excellent block. The umbilical wound was closed with a deep layer [id number] suture of 0 Vicryl. Skin edges were approximated with interrupted sutures of 4-0 Monocryl. Steri-Strips Telfa and OpSite dressings applied. Specimens none. Drains none. Blood loss minimal. The patient was taken to recovery area in satisfactory edition without apparent complication Cullen Rosa M.D., F.A.C.S. Type of Anesthesia:: General Anesthesiologist: Jeannette Horner
--- NOTE | 2019-08-14 12:50 | SUR.PHASEII ---
ABDOMEN VERY DISTENDED, ROUNDED, TENDERNESS ON RIGHT LATERAL SIDE, DENIES SHORTNESS OF BREATH OR DIFFICULTY BREATHING. 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
[2019-08-14] MEDS: HYDROcodone Bitartrate/Apap 5/325 Tablet PO (13:57)
== END 2019-08-14 14:40 | disposition home or self-care (01) ==
LOC: SDC 07:23 → AC 07:24
PROVIDERS: Family Provider Nurse Practitioner; PCP Nurse Practitioner; Referring Provider Surgery; Visit Provider Surgery
PROC: 0WQF4ZZ Repair Abdominal Wall, Percutaneous Endoscopic Approach (ICD-10-PCS; CPT 49653; principal; 2019-08-14 09:00)
DX: K43.9 Ventral hernia without obstruction or gangrene (principal); I10 Essential (primary) hypertension; Z79.899 Other long term (current) drug therapy; K76.0 Fatty (change of) liver, not elsewhere classified; K80.10 Calculus of gallbladder with chronic cholecystitis without obstruction; M10.9 Gout, unspecified; M19.90 Unspecified osteoarthritis, unspecified site
CPT/HCPCS: 49653; 36415; 80048; 85027; J7120; C1781; J2405

== ENCOUNTER → 2019-10-15 12:35 | Outpatient (CLI) | payer OTHER, SELFPAY ==
--- NOTE | 2019-10-15 12:35 | BRBX_PTH ---
PATIENT: ARTI SQUIRES LOC: [facility] U#:[id number] AGE/SX: 59/M ROOM: RE10/15/[address]: Dr. Cullen Rosa MD : 1965 BED: DIS: SPEC #: [id number] RECD: 10/15/19 14:04 STATUS: AMPARO WENDY #: [id number] LINDA: 10/15/19 12:[address]: Cullen Rosa DEPT: SURGICAL PATHOLOGY RECD BY: Julien Hurtado ENTERED: 10/15/19 14:15 SP TYPE: BREAST BX OTHR DR: Paige Mcfarlane, FUNCTIONAL ARCHITECT-Gilbert Tissues: Right breast, NOS Procedures: Surgery Specimen Level IV HEADER OPERATION: Right breast wire localization excisional biopsy PRE-OP DIAGNOSIS: Right breast nodule TISSUE SUBMITTED: Right breast tissue ISCHEMIC TIME: <30 seconds FIXATION TIME: 7 hours MICROSCOPIC DIAGNOSIS Right breast nodule, biopsy: Mature adipose tissue consistent with angiolipoma. AM:vero 10/16/19 COMMENT Clinical correlation is suggested. MICROSCOPIC DESCRIPTION Slides are reviewed. GROSS DESCRIPTION Received in fixative is one container labeled with the patient's name and designated right breast tissue. The specimen consists of two pieces of fibroadipose tissue that in aggregate measure 1.8 x 2 x 0.5 cm. Both pieces are bisected. The entire specimen is submitted in one cassette. No needle wire is noted in the specimen. / SJ:vero 10/15/19 TC:1 CPT: 75950
[2019-10-15 12:58] VITALS: BMI 32.4
== END ==
PROVIDERS: PCP Nurse Practitioner; Referring Provider Surgery; Visit Provider Surgery
DX: N63.10 Unspecified lump in the right breast, unspecified quadrant (principal)
CPT/HCPCS: 88305

== ENCOUNTER 2021-04-07 09:52 | Emergency (ER) | payer OTHER, SELFPAY ==
[2019-10-15 12:58] VITALS: BMI 32.4
[2021-04-07 09:54] VITALS: BP 190/110; PULSE 82; RESP 17; TEMP 36.5; O2SAT 99; BMI 33.5
--- NOTE | 2021-04-07 10:08 | CT_ITS ---
STUDY: CT ABDOMEN AND PELVIS WITHOUT CONTRAST REASON FOR EXAM: Male, 55 years old. Left flank pain. History of kidney stones. RADIATION DOSAGE (If Supplied By Facility): CTDIvol = ( 18.72 ) mGy, DLP = ( 1028.84 ) mGycm TECHNIQUE: Transaxial images were obtained from the dome of the diaphragm to the symphysis pubis without oral contrast, and without intravenous contrast. Sagittal and coronal images were reconstructed. Individualized dose optimization techniques were used for this CT. COMPARISON: Comparison is made with prior examination dated 05/30/2019. FINDINGS: The visualized lung bases are unremarkable. The visualized portions of the heart are within normal limits. There is decreased attenuation of the liver consistent with steatosis. There are surgical clips in the gallbladder fossa consistent with a prior cholecystectomy. Normal spleen. Normal pancreas. Normal bilateral adrenal glands. Nonobstructive right intrarenal calculi. The largest measures 3 mm. Multiple left intrarenal calculi. The largest measures 8 mm. There is a mild degree of left hydronephrosis and left hydroureter due to a 6.5 mm calculus in the distal portion of left ureter just proximal to the left ureterovesical junction. There is evidence of left perinephric and periureteric stranding. Normal visualized stomach. Normal small intestine. Normal colon. The appendix is visualized and appears normal. Normal abdominal aorta. Normal inferior vena cava. There is borderline retroperitoneal lymphadenopathy with enlarged nodes no greater than 10mm in the short axis diameter. Normal urinary bladder. There is a small umbilical hernia containing fat. Disc space narrowing and disc degeneration at the L5-S1 level with a grade 1 anterolisthesis of L5 on S1 and spondylolysis. CT/Abdomen/Pelvis without Cont IMPRESSION: 6.5 mm calculus in the distal portion of left ureter causing left hydronephrosis and left hydroureter. Nonobstructive bilateral intrarenal calculi. Fatty infiltration of the liver. Electronically Signed: Cayden Martinez MD at 11:16 EDT , Service support ,
--- NOTE | 2021-04-07 10:09 | EDS_ITS ---
HPI History of Present Illness Chief Complaint: Male Pain/Injury Detail of Chief Complaint: left abd pain Informant: patient Limited: dementia Pain Onset: Days (2-3) Context: Gradual Onset Timing: Intermittent Current Severity: Severe Maximum Severity: Severe Worsened by: nothing Relieved by: nothing Narrative Narrative: Patient presenting with like flank pain that radiates down into his left testicle. He had a mild episode 2 days ago, but it seemed to go away on its own, and it has come back today but has gradually become much worse than he had a before. He has a history of kidney stones, does not remember feeling like this, had pain on the right and did not need surgery for it, never had testicular pain with it. Urinated okay this morning without any issues, he has had some loose stools ever since his cholecystectomy remotely, no change there. Has had a history of diverticulitis and unsure if this feels similar to that or not. No fevers or chills or nausea/vomiting. No hematuria. [facility] Medical History Abdominal pain Arthritis Gallstones Gout Hemorrhoids Hypertension Numbness Subcutaneous mass Tingling Umbilical hernia Ventral incisional hernia without obstruction or gangrene Home Medications amlodipine 10 mg tablet 10 mg PO DAILY #10 tab 05/23/19 [History Last Taken 06/18/19 0600] losartan 100 mg tablet 100 mg PO DAILY #30 tab 05/23/19 [History Last Taken 06/18/19 0600] fexofenadine 180 mg PO PRN PRN 06/12/19 [History Last Taken Unknown] ondansetron 8 mg PO Q8H PRN PRN #20 tab 04/07/21 [Rx Last Taken Unknown] oxycodone-acetaminophen 1 tab PO Q4H PRN 4 Days #20 tablet 04/07/21 [Rx Last Taken Unknown] tamsulosin [Flomax] 0.4 mg PO DAILY #10 cap 04/07/21 [Rx Last Taken Unknown] Allergy/AdvReac Type Severity Reaction Status Date / Time ofloxacin [From Floxin] Allergy Other Verified 04/07/21 09:53 Family History Father Heart disease Prostate cancer Hypertension Sister Asthma Thyroid cancer Mother Hypertension High cholesterol Surgical History (Updated 04/07/21 @ 09:55 by Justine Rudolph) History of breast biopsy (~09/2019) History of cholecystectomy History of inguinal hernia repair (~08/2019) Hx of ingrown nail Social History Smoking Status: Never smoker second hand exposure: No alcohol intake: current alcohol intake frequency: holidays/special occasions only substance use type: does not use caffeine: Yes what type of physical activity do you participate in: none frequency: does not exercise ROS ROS ED Constitutional Constitutional ED: Denies chills or fever(s) Eyes Eyes: Denies change in vision or diplopia ENT ENT ED: Denies rhinorrhea or sore throat Cardiovascular Cardiovascular: Denies chest pain or palpitations Respiratory/Chest Respiratory/Chest: Denies cough or dyspnea Gastrointestinal Gastrointestinal: Reports as per HPI, abdominal pain and diarrhea; Denies nausea or vomiting Genitourinary Genitourinary ED: Reports as per HPI and scrotal pain; Denies dysuria, hematuria or scrotal swelling Musculoskeletal Musculoskeletal: Reports back pain; Denies neck pain Integumentary Denies abscess or rash Neurologic Neurologic: Denies headache(s), paresthesias or weakness Psychiatric Psychiatric: Denies anxiety or suicidal thoughts EXAM Physical Exam Const Vital Signs: 04/07/21 09:54 Temperature 97.7 F L Temperature Source Temporal Pulse Rate 82 Respiratory Rate 17 Blood Pressure 190/110 H Blood Pressure Mean 136 Pulse Ox 99 Oxygen Delivery Method Room Air Positive well nourished and well developed Constitutional Narrative: Uncomfortable, no distress. Truncal obesity. General Appearance ED: well developed and NAD HEENT Reports moist mucous membranes normocephalic and atraumatic Eyes PERRL and EOMs intact bilaterally Neck full ROM and supple Resp normal respiratory effort and clear to auscultation bilaterally Cardio regular rate, regular rhythm and no murmurs GI non-distended GI Narrative: Barely tender left lateral mid-flank, otherwise benign abdomen Auscultation: normoactive bowel sounds Palpation: soft Penis: normal penis Scrotum: testes descended bilaterally; Negative for inguinal hernia, tenderness, erythema or edematous Epididymis: Left: Normal and Left: Non-tender Back/Spine no CVA tenderness General Back: other FROM Extremity normal to inspection General Extremety ED: Negative for edema, pulses abnormal or tenderness General Extremity: Negative for edema or pulses abnormal Neuro oriented x3, CN's II-XII intact bilaterally and no sensory deficits noted Sensorium / Orientation: awake and alert Motor Exam: strength 5/5 throughout Skin no rashes or lesions noted and no wounds MDM MDM MDM Narrative Medical decision making narrative: Patient does have a significant leukocytosis, there is blood in his urine with no signs of infection, CT shows no diverticulitis it is consistent with a 6.5 mm UVJ stone with resultant hydronephrosis/hydroureter. This is consistent with the patient's history and exam. He feels much better after morphine and Toradol, he is comfortable and his clinically hemodynamically stable. His blood pressure will be repeated prior to discharge was very high initially 190/110. Expectant management is indicated at this time, certainly there is a chance that he will have trouble passing a 6.5 mm stone, but on further discussion he states the one he had before that he passed was 7 mm. He was given Flomax at that time, which is reasonable to try again given the location of the stone. Will prescribe him that and analgesics, antiemetics, as well as giving him urine strainers, we discussed reasons to return and follow-up with urology. He is comfortable with that plan. Lab Data Attestation: I reviewed the patient's lab results. Labs: Laboratory Results - last 24 hr 04/07/21 04/07/21 04/07/21 10:26 10:26 11:08 WBC 16.2 H RBC 5.27 Hgb 14.8 Hct 46.7 MCV 88.6 MCH 28.1 MCHC 31.7 L RDW Std Deviation 43.2 RDW Coeff of Eliel 13.2 Plt Count 376 MPV 9.7 Immature Gran % (Auto) 0.600 Neut % (Auto) 81.6 H Lymph % (Auto) 9.0 L [place] % (Auto) 8.0 Eos % (Auto) 0.4 Baso % (Auto) 0.4 Absolute Neuts (auto) 13.2 H Absolute Lymphs (auto) 1.45 Nucleated RBC % 0 Sodium 139 Potassium 3.7 Chloride 104 Carbon Dioxide 30.0 Anion Gap 5 BUN 19 H Creatinine 1.26 Estim Creat Clear Calc 69.72 Est GFR (MDRD) Af Amer 76 Est GFR (MDRD) Non-Af 63 BUN/Creatinine Ratio 15.1 Glucose 121 H Calcium 9.2 Urine Color Yellow Urine Clarity Clear Urine pH 6.0 Ur Specific [place] 1.020 Urine Protein 15 H Urine Glucose (UA) Normal Urine Ketones Negative Urine Occult Blood 250 H Urine Nitrite Negative Urine Bilirubin Negative Urine Urobilinogen Normal Ur Leukocyte Esterase Negative Urine RBC 50-100 SEEN Urine WBC 0 SEEN Ur Squamous Epith Cells 0 SEEN Urine Bacteria 0 SEEN Urine Mucus 0 SEEN Radiography Diagnostic Testing: Radiology Impression Abdomen/Pelvis CT 04/07/21 10:08 IMPRESSION: 6.5 mm calculus in the distal portion of left ureter causing left hydronephrosis and left hydroureter. Nonobstructive bilateral intrarenal calculi. Fatty infiltration of the liver. Electronically Signed: Cayden Martinez MD at 11:16 EDT , Service support , Discharge Plan Triage Chief Complaint: Male Pain/Injury ED Provider: Braydon Ceja Dx/Rx/DC Orders Clinical Impression: Ureterolithiasis, Renal colic on left side Instructions: ED Urine Strainer, ED Kidney Stone w/ Colic Prescriptions: New oxycodone-acetaminophen [oxycodone-acetaminophen] 1 TABLET tablet 1 tab PO Q4H PRN (Reason: pain) 4 Days Qty: 20 RF: 0 ondansetron [ondansetron] 4 MG tablet 8 mg PO Q8H PRN PRN (Reason: Nausea) Qty: 20 RF: 0 tamsulosin [Flomax] 0.4 mg capsule 0.4 mg PO DAILY Qty: 10 RF: 0 No Action amlodipine 10 mg tablet 10 mg PO DAILY Qty: 10 RF: 0 losartan 100 mg tablet 100 mg PO DAILY Qty: 30 RF: 0 fexofenadine 180 MG tablet 180 mg PO PRN PRN (Reason: Allergies) RF: 0 Primary Care Provider: Paige Mcfarlane NP Referrals: Gerson Hua MD [STAFF PHYSICIAN] - 1 Week if not improving Paige Mcfarlane NP, SENIOR COMPLIANCE ANALYST-C [Primary Care Provider] - Disposition Disposition: Home, Self Care
[2021-04-07] MEDS: Ondansetron 4 MG/2 ML Vial IV (10:32)
[2021-04-07] MEDS: Ketorolac 15 MG/ML Vial IV (10:32)
[2021-04-07] MEDS: Morphine 4 MG/ML Syringe IV (10:33)
[2021-04-07 10:35] LABS: Absolute Lymphocyte Count 1.45 X10^3/uL (0.83-4.51); Absolute Neutrophil Count 13.2 X10^3/uL (2.0-7.7); Basophil# 0.06 X10^3/uL; Basophil% 0.4 % (0-1); Eosinophil# 0.07 X10^3/uL; Eosinophils% 0.4 % (0-5); Hematocrit 46.7 % (40-54); Hemoglobin 14.8 g/dL (13.0-16.5); Lymphocyte # 1.45 X10^3/ul (0.83-4.51); Mean Corp Hgb Conc 31.7 g/dL (32-36); Mean Corpuscular Hgb 28.1 pg (27.0-32.0); Mean Corpuscular Volume 88.6 fL (80-94); Mean Platelet Vol. 9.7 fl (6.2-12.0); Monocyte# 1.29 X10^3/uL; NRBC Flagged by Analyzer 0 % (0-5); Neutrophil # 13.21 X10^3/uL (2.7-7.7); Neutrophil % 81.6 % (47-70); Platelet Count 376 K/mm3 (150-450); RBC Distribution Width CV 13.2 % (11.6-14.6); RBC Distribution Width SD 43.2 fl (35.1-43.9); Red Blood Count 5.27 M/mm3 (4.6-6.2); White Blood Count 16.2 K/mm3 (4.4-11.0)
[2021-04-07 10:57] LABS: Anion Gap 5 (5-15); BUN 19 mg/dL (7-18); BUN/Creat Ratio 15.1 RATIO (10-20); Calcium,Total 9.2 mg/dL (8.5-10.1); Chloride 104 mmol/L (98-107); Creatinine, Serum 1.26 mg/dL (0.70-1.30); EST Glomerular Filtration Rate 63 mL/min (>60); Est Glom Filt Rate - Afr Amer 76 mL/min (>60); Estimated Creatinine Clearance 69.72 ml/min; Glucose 121 mg/dL (74-106); Potassium 3.7 mmol/L (3.5-5.1); Sodium Level 139 mmol/L (136-145)
[2021-04-07 11:09] LABS: Bacteria 0 SEEN /hpf (None Seen); Mucous, Urine 0 SEEN /hpf (<or=2+); Squamous Epithelial Cells - UA 0 SEEN /hpf (0-5); White Blood Cells 0 SEEN /hpf (0-5)
[2021-04-07 11:10] LABS: Color, Urine Yellow (Yellow); Glucose, Dipstick Normal (Normal); Ketone-Dipstick Negative (Negative); Leukocyte Esterase-Dipstick Negative /ul (Negative); Nitrite-Dipstick Negative (Negative); Occult Blood-Urine 250 /ul (Negative); Protein-Dipstick 15 mg/dl (Negative); Urine Bilirubin Dipstick Negative (Negative); Urine Clarity Clear (Clear); Urine Urobilinogen Normal (Normal)
[2021-04-07 11:19] LABS: Red Blood Cells-Urine 50-100 SEEN /hpf (0-5)
== END 2021-04-07 12:26 | disposition home or self-care (01) ==
PROVIDERS: Emergency Provider Emergency Medicine; PCP Nurse Practitioner
DX: N13.2 Hydronephrosis with renal and ureteral calculous obstruction (principal); K76.0 Fatty (change of) liver, not elsewhere classified; E66.9 Obesity, unspecified; Z90.49 Acquired absence of other specified parts of digestive tract; F03.90 Unspecified dementia, unspecified severity, without behavioral disturbance, psychotic disturbance, mood disturbance, and anxiety; I10 Essential (primary) hypertension; M10.9 Gout, unspecified; M19.90 Unspecified osteoarthritis, unspecified site; Z87.442 Personal history of urinary calculi
CPT/HCPCS: 74176; 80048; 81001; 85025; 96374; 96375; 99284; A4216; J2405

== ENCOUNTER 2022-04-16 18:40 | Emergency (ER) | payer OTHER, SELFPAY ==
[2022-04-16 18:42] VITALS: BP 175/95; PULSE 102; RESP 20; TEMP 36.3; O2SAT 96; BMI 32.1
--- NOTE | 2022-04-16 18:57 | CT_ITS ---
STUDY: CT Abdomen And Pelvis W/O Contrast Injection 04/16/2022 7:42 PM REASON FOR EXAM: Male, 56 years old. ABDOMINAL PAIN Pain Technologist Notes Other, LT FLANK PAIN,NAUSEA AND DIFFICULT URINATION TECHNIQUE: Transaxial images were obtained without oral contrast, and without intravenous contrast. Individualized dose optimization techniques were used for this CT. COMPARISON: 04.07.21. FINDINGS: The visualized lung bases are unremarkable. The visualized portions of the heart are within normal limits. Unremarkable liver. There is non-visualization of the gallbladder, which may be secondary to either contraction or a prior cholecystectomy. Unremarkable spleen. Unremarkable pancreas. Unremarkable bilateral adrenal glands. Non obstructive 2 mm right renal parenchymal stones. Non obstructive 2-3 mm left renal parenchymal stones. Moderate hydronephrosis caused by left 4.3 mm distal ureteral stone. Unremarkable visualized stomach. Unremarkable small intestine. There are multiple colonic diverticula consistent with diverticulosis. The appendix is visualized and appears unremarkable. There are no acute findings of the abdominal aorta. Unremarkable inferior vena cava. Subcentimeter mesenteric lymph nodes. Unremarkable urinary bladder. There is an umbilical hernia containing fat. There are bilateral pars articularis defects at L5-S1. There is a Grade 1 anterolisthesis of L5 on S1. There is bilateral neural foraminal stenosis at L5-S1. CT/Abdomen/Pelvis without Cont IMPRESSION: (NOT LISTED IN ORDER OF SIGNIFICANCE) There are multiple colonic diverticula consistent with diverticulosis. Moderate hydronephrosis caused by left 4.3 mm distal ureteral stone. Other findings as above. Electronically Signed: Maged Stein MD at 20:01 EDT ,
--- NOTE | 2022-04-16 18:58 | EDS_ITS ---
HPI HPI - GI History of Present Illness Chief Complaint: Flank Pain Detail of Chief Complaint: Left flank pain yesterday. Informant: patient and spouse/S.O. Abdominal Pain/Flank Pain Onset: Yesterday Timing: Intermittent Quality: Sharp and Stabbing Location: Left Flank Current Severity: Moderate Maximum Severity: Moderate Worsened by: Nothing Relieved by: Nothing Nausea/Vomiting/Emesis GI Symptom: Positive for Nausea; Negative for Vomiting Onset: Today Severity: Mild Diarrhea/Melena/Hematochezia GI Symptom: Negative for Diarrhea, Melena or Hematochezia Associated Symptoms Associated Symptoms: Negative for Dysuria, Frequency, Hematuria or Urgency Narrative Narrative: 56-year-old male history of 2 prior kidney stones have passed on their own. Also history of hypertension. Complaint left flank pain is been intermittent since yesterday worse today. Associated nausea but no vomiting. No diarrhea. No dysuria or hematuria. Denies any trauma. Feels like his prior kidney stones. Prior similar symptoms: Yes Recent Illness/Hospitalization: No PFSH PFSH Medical History Abdominal pain Arthritis Gallstones Gout Hemorrhoids Hypertension Numbness Subcutaneous mass Tingling Umbilical hernia Ventral incisional hernia without obstruction or gangrene Home Medications amlodipine 10 mg tablet 10 mg PO DAILY #10 tabs 05/23/19 [History Last Taken 06/18/19 0600] losartan 100 mg tablet 100 mg PO DAILY #30 tabs 05/23/19 [History Last Taken 06/18/19 0600] fexofenadine 180 mg tablet 180 mg PO PRN PRN Allergies 06/12/19 [History Last Taken Unknown] ondansetron 4 mg disintegrating tablet 8 mg PO Q8H PRN PRN Nausea #20 tabs 04/07/21 [Rx Last Taken Unknown] oxycodone-acetaminophen 5 mg-325 mg tablet 1 tab PO Q4H PRN pain 4 days #20 TABLETS 04/07/21 [Rx Last Taken Unknown] tamsulosin 0.4 mg capsule (Flomax) 0.4 mg PO DAILY #10 caps 04/07/21 [Rx Last Taken Unknown] hydrocodone 5 mg-acetaminophen 300 mg tablet 1 tab PO Q4H PRN pain 3 days #14 tabs 04/16/22 [Rx Last Taken Unknown] Allergy/AdvReac Type Severity Reaction Status Date / Time ofloxacin [From Floxin] Allergy Other Verified 04/16/22 18:42 Family History Father Heart disease Prostate cancer Hypertension Sister Asthma Thyroid cancer Mother Hypertension High cholesterol Surgical History History of breast biopsy (~09/2019) History of cholecystectomy History of inguinal hernia repair (~08/2019) Hx of ingrown nail Social History Smoking Status: Never smoker second hand exposure: No alcohol intake: current alcohol intake frequency: holidays/special occasions only substance use type: does not use caffeine: Yes what type of physical activity do you participate in: none frequency: does not exercise ROS ROS ED ROS Narrative Left flank pain. Nausea. Review of Systems ROS Unobtainable: Denies due to encephalopathy Constitutional Constitutional ED: Reports chills; Denies fever(s) ENT ENT ED: Denies ear pain Cardiovascular Cardiovascular: Denies chest pain Respiratory/Chest Respiratory/Chest: Denies cough Gastrointestinal Gastrointestinal: Reports abdominal pain and nausea; Denies constipation, diarrhea, melena or vomiting Genitourinary Genitourinary ED: Denies dysuria Musculoskeletal Musculoskeletal: Denies arthralgias Integumentary Denies abscess Neurologic Neurologic: Denies headache(s) Psychiatric Psychiatric: Denies anxiety Endocrine Endocrinology: Denies polydipsia Hematologic/Lymphatic Hematologic/Lymphatic: Denies easy bleeding Allergic/Immunologic Allergic/Immunologic ED: Denies mouth swelling EXAM Physical Exam Narrative Exam Narrative: 56-year-old male with left flank pain. Vital signs stable afebrile. Does not look septic or toxic. H EENT exam unremarkable. Neck nontender. Lungs clear to auscultation. Heart regular rhythm no murmur. Rate about 100. Abdomen soft nontender normal bowel sounds no peritoneal signs. No hernia or mass. Back nontender. Moving all 4 extremities. Exam otherwise unremarkable. Const Vital Signs: 04/16/22 18:42 Temperature 97.3 F L Temperature Source Temporal Pulse Rate 102 H Respiratory Rate 20 H Blood Pressure 175/95 H Blood Pressure Mean 121 Pulse Ox 96 Oxygen Delivery Method Room Air Positive well nourished, well developed and obese; Negative for cachectic, contractures or unkempt General Appearance ED: well developed; Negative for unkempt, cachectic, contractures or pallor Nutritional Appearance: obese; Negative for cachectic HEENT Reports moist mucous membranes normocephalic and atraumatic; Negative for trauma or tenderness Eyes PERRL and EOMs intact bilaterally General Eye ED: Negative for pale conjunctiva or scleral icterus Neck no lymphadenopathy, supple and no JVD General: Negative for tenderness Carotids: Negative for other Lymph Lymphatic: Negative for other Resp normal respiratory effort and clear to auscultation bilaterally Effort and Inspection: Negative for respiratory distress or retractions Auscultation: Negative for rales, rhonchi or wheezes Cardio regular rate, regular rhythm, S1 normal heart sound, S2 normal heart sound and no murmurs GI non-tender, non-distended and no masses Inspection: Negative for abdominal distention Auscultation: normoactive bowel sounds Palpation: soft; Negative for tender, guarding, rigid, hepatomegaly, splenomegaly, hernia, mass or pulsatile mass Back/Spine no CVA tenderness General Back: Negative for CVA tenderness Cervical Spine: Negative for cervical spine tenderness Thoracic Spine / Upper Back: Negative for thoracic spinal tenderness Lumbar Spine / Lower Back: Negative for lumbar spinal tenderness Extremity full ROM General Extremety ED: Negative for edema or tenderness General Extremity: Negative for edema Neuro CN's II-XII intact bilaterally and moves all extremities Sensorium / Orientation: alert, oriented to person, oriented to place and oriented to time; Negative for orientation impaired, confused, lethargic or stuporous Motor Exam: strength 5/5 throughout Psych mental status grossly normal and thought process normal Appearance: Negative for unkempt Attitude: No agitated Mood & Affect: Negative for depressed, anxious or tearful Skin no wounds General Skin Exam: Negative for jaundice or pallor Lesions: no lesions Rashes: no rashes Trauma: Negative for abrasion Nails: Negative for discolored MDM MDM MDM Narrative Medical decision making narrative: 56-year-old male left flank pain with a history of 2 prior kidney stones. Clinically historically this sounds like a kidney stone. Treated with IV Toradol, Dilaudid, Zofran and fluids. CAT scan labs pending. Repeat exam at 8:47 PM patient doing well. Resting comfortably. He does not want or need anything else for pain or nausea. He is comfortable being discharged home. We discussed his lab and CAT scan results. 8 days ago he has nausea medication at home. I will write him for some Vicodin for pain. Symptoms at least 2 days prior to fluids and follow-up as needed with urology. Return if worse. Lab Data Attestation: I reviewed the patient's lab results. Lab results narrative: CBC shows a white count of 15.5. H&H of 13.6 and 40. Platelets 337. Electrolytes unremarkable gap is 7 BUN 26 creatinine 1.78. Glucose 226. UA shows 25 occult blood but 0 red cells, 0 white cells and no bacteria nor any nitrates. CAT scan shows a distal left 4 mm ureteral calculi. Labs: Laboratory Results - last 24 hr 04/16/22 04/16/22 04/16/22 19:06 19:06 19:24 WBC 15.5 H RBC 4.71 Hgb 13.6 Hct 40.8 MCV 86.6 MCH 28.9 MCHC 33.3 RDW Std Deviation 43.0 RDW Coeff of Eliel 13.5 Plt Count 337 MPV 9.9 Immature Gran % (Auto) 0.300 Neut % (Auto) 83.2 H Lymph % (Auto) 9.2 L [place] % (Auto) 6.3 Eos % (Auto) 0.6 Baso % (Auto) 0.4 Absolute Neuts (auto) 12.9 H Absolute Lymphs (auto) 1.42 Nucleated RBC % 0 Sodium 138 Potassium 3.8 Chloride 106 Carbon Dioxide 25.0 Anion Gap 7 BUN 26 H Creatinine 1.78 H Estim Creat Clear Calc 48.77 Est GFR (MDRD) Af Amer 51 L Est GFR (MDRD) Non-Af 42 L BUN/Creatinine Ratio 14.6 Glucose 226 H Calcium 8.7 Urine Color Yellow Urine Clarity Clear Urine pH 6.0 Ur Specific Anderson 1.020 Urine Protein 15 H Urine Glucose (UA) 50 H Urine Ketones 5 H Urine Occult Blood 25 H Urine Nitrite Negative Urine Bilirubin Negative Urine Urobilinogen Normal Ur Leukocyte Esterase Negative Urine RBC 0-5 SEEN Urine WBC 0 SEEN Ur Squamous Epith Cells 0-5 SEEN Urine Bacteria 0 SEEN Urine Mucus 0 SEEN Radiography Diagnostic Testing: Clinical Impression(s) from Imaging Studies Abdomen/Pelvis CT 04/16/22 18:57 IMPRESSION: (NOT LISTED IN ORDER OF SIGNIFICANCE) There are multiple colonic diverticula consistent with diverticulosis. Moderate hydronephrosis caused by left 4.3 mm distal ureteral stone. Other findings as above. Electronically Signed: Maged Stein MD at 20:01 EDT , Discharge Plan Triage Chief Complaint: Flank Pain ED Provider: Lars Jeffrey Dx/Rx/DC Orders Clinical Impression: Renal colic on left side, History of hypertension Instructions: ED Kidney Stone w/ Colic Prescriptions: New hydrocodone-acetaminophen 5-300 mg tablet 1 tab PO Q4H PRN (Reason: pain) 3 Days Qty: 14 0RF No Action amlodipine 10 mg tablet 10 mg PO DAILY Qty: 10 Label Comments: TAKE ONE TABLET BY MOUTH DAILY losartan 100 mg tablet 100 mg PO DAILY Qty: 30 Label Comments: TAKE ONE TABLET BY MOUTH EVERY DAY fexofenadine 180 MG tablet 180 mg PO PRN PRN (Reason: Allergies) oxycodone-acetaminophen [oxycodone-acetaminophen] 1 TABLET tablet 1 tab PO Q4H PRN (Reason: pain) 4 Days Qty: 20 0RF ondansetron [ondansetron] 4 MG tablet 8 mg PO Q8H PRN PRN (Reason: Nausea) Qty: 20 0RF tamsulosin [Flomax] 0.4 mg capsule 0.4 mg PO DAILY Qty: 10 0RF Primary Care Provider: Tesha Vail Referrals: Tesha Vail DO [Primary Care Provider] - As Needed Activity Restrictions/Additional Instructions: Vicodin for pain. Zofran that you have at home as needed for nausea. Plenty of fluids and rest. Follow-up with urology as needed. Your kidney function was a little off tonight with your creatinine of 1.78. I would have your primary care physician recheck that in 2 to 4 weeks to ensure that that is improving. Disposition Disposition: Home, Self Care
[2022-04-16 19:17] LABS: Absolute Lymphocyte Count 1.42 X10^3/uL (0.83-4.51); Absolute Neutrophil Count 12.9 X10^3/uL (2.0-7.7); Basophil# 0.06 X10^3/uL; Basophil% 0.4 % (0-1); Eosinophils% 0.6 % (0-5); Hematocrit 40.8 % (40-54); Hemoglobin 13.6 g/dL (13.0-16.5); Lymphocyte # 1.42 X10^3/ul (0.83-4.51); Lymphocyte % 9.2 % (19-41); Mean Corp Hgb Conc 33.3 g/dL (32-36); Mean Corpuscular Hgb 28.9 pg (27.0-32.0); Mean Corpuscular Volume 86.6 fL (80-94); Mean Platelet Vol. 9.9 fl (6.2-12.0); Monocyte# 0.98 X10^3/uL; Monocyte% 6.3 % (0-10); NRBC Flagged by Analyzer 0 % (0-5); Neutrophil # 12.89 X10^3/uL (2.7-7.7); Neutrophil % 83.2 % (47-70); Platelet Count 337 K/mm3 (150-450); RBC Distribution Width CV 13.5 % (11.6-14.6); Red Blood Count 4.71 M/mm3 (4.6-6.2); White Blood Count 15.5 K/mm3 (4.4-11.0)
[2022-04-16] MEDS: HYDROmorphone 1 MG/ML Syringe IV (19:18)
[2022-04-16] MEDS: Ketorolac 30 MG/ML Syringe IV (19:18)
[2022-04-16] MEDS: 0.9% Normal Saline 1,000 ML 1000 ML IV (19:18)
[2022-04-16] MEDS: Ondansetron 4 MG/2 ML Vial IV (19:18)
[2022-04-16 19:28] LABS: Anion Gap 7 (5-15); BUN 26 mg/dL (7-18); BUN/Creat Ratio 14.6 RATIO (10-20); Calcium,Total 8.7 mg/dL (8.5-10.1); Chloride 106 mmol/L (98-107); Creatinine, Serum 1.78 mg/dL (0.70-1.30); EST Glomerular Filtration Rate 42 mL/min (>60); Est Glom Filt Rate - Afr Amer 51 mL/min (>60); Estimated Creatinine Clearance 48.77 ml/min; Glucose 226 mg/dL (74-106); Potassium 3.8 mmol/L (3.5-5.1); Sodium Level 138 mmol/L (136-145)
[2022-04-16 19:28] LABS: Bacteria 0 SEEN /hpf (None Seen); Mucous, Urine 0 SEEN /hpf (<or=2+); White Blood Cells 0 SEEN /hpf (0-5)
[2022-04-16 19:34] LABS: Color, Urine Yellow (Yellow); Glucose, Dipstick 50 mg/dl (Normal); Ketone-Dipstick 5 mg/dl (Negative); Leukocyte Esterase-Dipstick Negative /ul (Negative); Nitrite-Dipstick Negative (Negative); Occult Blood-Urine 25 /ul (Negative); Protein-Dipstick 15 mg/dl (Negative); Urine Bilirubin Dipstick Negative (Negative); Urine Clarity Clear (Clear); Urine Urobilinogen Normal (Normal)
[2022-04-16 19:41] LABS: Red Blood Cells-Urine 0-5 SEEN /hpf (0-5); Squamous Epithelial Cells - UA 0-5 SEEN /hpf (0-5)
[2022-04-16 21:04] VITALS: BP 140/81; PULSE 64
== END 2022-04-16 21:18 | disposition home or self-care (01) ==
PROVIDERS: Emergency Provider Emergency Medicine; PCP Internal Medicine; Visit Provider Emergency Medicine
DX: R10.9 Unspecified abdominal pain (principal); I10 Essential (primary) hypertension; K57.30 Diverticulosis of large intestine without perforation or abscess without bleeding; N13.2 Hydronephrosis with renal and ureteral calculous obstruction
CPT/HCPCS: 74176; 80048; 81001; 85025; 96361; 96374; 96375; 99284; J7030; A4216; J2405

== ENCOUNTER → 2022-05-06 | Outpatient (CLI) | payer OTHER, SELFPAY ==
--- NOTE | 2022-05-06 08:27 | EKG12_ITS ---
Test Reason : PRE-OP Blood Pressure : / mmHG Vent. Rate : 059 BPM Atrial Rate : 059 BPM P-R Int : 182 ms QRS Dur : 102 ms QT Int : 422 ms P-R-T Axes : 053 058 042 degrees QTc Int : 417 ms Sinus bradycardia Otherwise normal ECG Confirmed by MILADIS NEVAREZ, ANABELL ([id number]), editor map DWAYNE SHARMA ([id number]) on 05/09/2022 11:31:35 AM Referred By: Harvey Rivera Confirmed By:ANABELL REDDING MD
[2022-05-06 08:45] LABS: Hematocrit 43.9 % (40-54); Mean Corp Hgb Conc 31.9 g/dL (32-36); Mean Corpuscular Hgb 27.5 pg (27.0-32.0); Mean Corpuscular Volume 86.2 fL (80-94); Mean Platelet Vol. 9.5 fl (6.2-12.0); Platelet Count 358 K/mm3 (150-450); RBC Distribution Width CV 13.2 % (11.6-14.6); RBC Distribution Width SD 41.2 fl (35.1-43.9); Red Blood Count 5.09 M/mm3 (4.6-6.2); White Blood Count 8.6 K/mm3 (4.4-11.0)
[2022-05-06 09:09] LABS: Anion Gap 6 (5-15); BUN 19 mg/dL (7-18); BUN/Creat Ratio 17.4 RATIO (10-20); Calcium,Total 8.9 mg/dL (8.5-10.1); Chloride 106 mmol/L (98-107); Creatinine, Serum 1.09 mg/dL (0.70-1.30); EST Glomerular Filtration Rate 74 mL/min (>60); Est Glom Filt Rate - Afr Amer 90 mL/min (>60); Glucose 130 mg/dL (74-106); Potassium 3.7 mmol/L (3.5-5.1); Sodium Level 142 mmol/L (136-145)
== END | disposition home or self-care (01) ==
PROVIDERS: PCP Internal Medicine; Referring Provider Physician Assistant; Visit Provider Physician Assistant
DX: Z01.818 Encounter for other preprocedural examination (principal); Z01.810 Encounter for preprocedural cardiovascular examination
CPT/HCPCS: 36415; 80048; 85027; 93005

== ENCOUNTER → 2022-06-03 | Outpatient (CLI) | payer OTHER, SELFPAY ==
--- NOTE | 2022-06-03 14:51 | VDLE_ITS ---
Reason For Study: Pain Procedure LEFT This is a venous duplex using B-mode, color GSV is normal. flow and spectral Doppler. CFV is compressible, spontaneous, phasic, Exam performed in department. competent, and demonstrates normal A preliminary report was called and/or faxed augmentation. to Dr. Petty. FV is compressible, spontaneous, phasic, competent and demonstrates normal augmentation. POP V is compressible, spontaneous, phasic, competent and demonstrates normal augmentation. T/P Trunk is compressible. PTV is compressible. LT PerV is compressible. Hypoechoic, non vascular structure noted Lt Pop Fossa measuring 1.25cm x 2.82cm. VL/Venous Duplex US, Unilateral Interpretation Summary There is no evidence of left lower extremity deep vein thrombosis. Left great s aphenous vein appears patent and compressible segmentally. Hypoechoic nonvascular left popliteal tracy a structure 1.25 x 2.82 cm consistent with a Anderson's cyst. Clinical correlation would be appropria te. Ordering Physician: Milan Petty Referring Physician: Tesha Vail Performed By: Gabrielle Osorio, NONI, RVT
== END | disposition home or self-care (01) ==
PROVIDERS: PCP Internal Medicine; Visit Provider Orthopaedic Surgery
DX: M79.605 Pain in left leg (principal)
CPT/HCPCS: 93971

== ENCOUNTER 2023-03-22 10:46 | Emergency (ER) | payer OTHER, SELFPAY ==
[2023-03-22 10:47] VITALS: BP 186/100; PULSE 79; RESP 14; TEMP 36.6; O2SAT 98; BMI 36.6
--- NOTE | 2023-03-22 10:56 | EKG12_ITS ---
Test Reason : FLANK PAIN Blood Pressure : / mmHG Vent. Rate : 067 BPM Atrial Rate : 067 BPM P-R Int : 164 ms QRS Dur : 098 ms QT Int : 392 ms P-R-T Axes : 053 051 036 degrees QTc Int : 414 ms Normal sinus rhythm with sinus arrhythmia Normal ECG Confirmed by MILADIS NEVAREZ, ANABELL ([id number]), continuity editor DWAYNE SHARMA ([id number]) on 03/23/2023 1:30:06 PM Referred By: Confirmed By:ANABELL REDDING MD
--- NOTE | 2023-03-22 10:56 | CT_ITS ---
STUDY: CTA CHEST REASON FOR EXAM: Male, 57 years old. RIGHT FLANK PAIN RADIATION DOSAGE (If Supplied By Facility): CTDIvol = ( 16.99 ) mGy, DLP = ( 451.69 ) mGycm TECHNIQUE: The examination was performed with the intravenous administration of IV 100mL Isovue-370. Post-processing of the angiographic images was performed, with multiplanar reformation and 3D reconstruction. Individualized dose optimization techniques were used for this CT. COMPARISON: None. FINDINGS: Normal enhancement of the main pulmonary artery and right and left pulmonary arteries. Normal enhancement of the bilateral peripheral pulmonary arteries. There is no demonstrated pulmonary embolism. Normal thoracic aorta and visualized great vessels. There is no demonstrated aortic dissection. Normal heart and pericardium. There are visualized mediastinal lymph nodes, which are within normal size limits, and with normal morphology. Normal hilar regions. Normal visualized trachea and bronchi. The lungs are well expanded. Normal pulmonary parenchyma. Normal pleura. Normal chest wall structures. Normal osseous structures. Fatty infiltration of the liver. Small hiatal hernia. CT/CTA Chest W/WO Contrast IMPRESSION: Fatty position of the liver. Small hiatal hernia. No evidence of pulmonary embolism. Electronically Signed: Cayden Martinez MD at 12:42 EDT ,
--- NOTE | 2023-03-22 10:57 | EX.ED.DYSGE1 ---
HPI History of Present Illness Chief Complaint: Flank Pain Narrative Narrative: 57-year-old male, past medical history of hypertension, presents with right-sided back and flank pain that has had since late last evening. He states he was at the movies, watching a 3-hour movie and started having back pain. While he has had a history of kidney stones in the past, he feels that this is 6 to 8 inches higher up in his back than his usual flank pain. It does not radiate towards the front or down towards his testicle. He denies any hematuria or dysuria. He may be slightly short of breath but is having increasing pain in his right back. He denies any leg swelling, no exacerbating or alleviating factors. [facility] Medical History Abdominal pain Arthritis Gallstones Gout Hemorrhoids Hypertension Numbness Subcutaneous mass Tingling Umbilical hernia Ventral incisional hernia without obstruction or gangrene Home Medications amlodipine 10 mg tablet 10 mg PO DAILY #10 tabs 05/23/19 [History Last Taken 06/18/19 0600] losartan 100 mg tablet 100 mg PO DAILY #30 tabs 05/23/19 [History Last Taken 06/18/19 0600] fexofenadine 180 mg tablet 180 mg PO PRN PRN Allergies 06/12/19 [History Last Taken Unknown] ondansetron 4 mg disintegrating tablet 8 mg (2 x 4 mg) PO Q8H PRN PRN Nausea #20 tabs 04/07/21 [Rx Last Taken Unknown] oxycodone-acetaminophen 5 mg-325 mg tablet 1 tab PO Q4H PRN pain 4 days #20 TABLETS 04/07/21 [Rx Last Taken Unknown] tamsulosin 0.4 mg capsule (Flomax) 0.4 mg PO DAILY #10 caps 04/07/21 [Rx Last Taken Unknown] hydrocodone 5 mg-acetaminophen 300 mg tablet 1 tab PO Q4H PRN pain 3 days #14 tabs 04/16/22 [Rx Last Taken Unknown] Allergy/AdvReac Type Severity Reaction Status Date / Time ofloxacin [From Floxin] Allergy Other Verified 03/22/23 10:46 Family History Father Heart disease Prostate cancer Hypertension Sister Asthma Thyroid cancer Mother Hypertension High cholesterol Surgical History History of breast biopsy (~09/2019) History of cholecystectomy History of inguinal hernia repair (~08/2019) Hx of ingrown nail Social History Smoking Status: Never smoker second hand exposure: No alcohol intake: current alcohol intake frequency: holidays/special occasions only substance use type: does not use caffeine: Yes what type of physical activity do you participate in: none frequency: does not exercise ROS ROS ED ROS Narrative Constitutional: No fever, no chills. HEENT: No sore throat. No neck pain. No loss of vision. No rhinorrhea. Cardiovascular: No chest pain. No palpitations. No pedal edema. Respiratory: No cough, mild shortness of breath. Abdominal: No abdominal pain. No nausea. No vomiting. Genitourinary: No dysuria. No hematuria. Right flank pain to right lower thoracic back pain. Musculoskeletal: No myalgias. No arthralgias. Neurologic: No headaches. No dizziness. No lightheadedness. Skin: No rash. No change in color. Psychiatric: No depression. No anxiety. EXAM Physical Exam Narrative Exam Narrative: Afebrile. Vital signs noted. HEENT: Normocephalic. Atraumatic. PERRL, EOMI. Neck soft and supple. No point tenderness or step off. Cardiovascular: Regular rate and rhythm. No murmurs, rubs, or gallops appreciated. Respiratory: No tachypnea. Lungs clear to auscultation bilaterally. Gastrointestinal: Abdomen soft, nontender, with normoactive bowel sounds. No rebound or guarding. Neurological: Awake. Alert. Nonfocal, nonlateralizing. Skin: No rash. Normal color. No pallor. Musculoskeletal: No pedal edema. Full range of motion extremities. Const Vital Signs: 03/22/23 10:47 03/22/23 10:56 Temperature 98 F Temperature Source Temporal Pulse Rate 79 Respiratory Rate 14 Respiratory Effort Normal Non-Labored Respiratory Pattern Normal Blood Pressure 186/100 H Blood Pressure Mean 128 Pulse Ox 98 Oxygen Delivery Method Room Air MDM MDM MDM Narrative Medical decision making narrative: His urine physical, his pain seems a little higher than for ureterolithiasis, although this could be in the differential. Patient has had prior abdominal surgery with ventral hernia and mesh. He states that his surgeon took out his gallbladder at that time so I have no suspicion for gallbladder pathology as he has had prior cholecystectomy. Major concern would be more for pulmonary embolism given his lower thoracic back pain on the right. I will check labs in the form of CBC, CMP, and lipase to help rule out pancreatitis. I do not feel he requires abdominal imaging quite yet as he is not really having lower abdominal pain or renal colic type symptoms. I will obtain a urinalysis. I will also obtain an EKG, troponin, and D-dimer, but I do feel that he merits CTA imaging of the chest. I reviewed the patient's prior ED visits. He has had large ureteral stones in the past. However, he was stating that his pain is higher up. Additionally, he drove here so he will be administered Toradol initially. He has slightly elevated white count of 11.4 which I think is nonspecific, in review of his other laboratory work hemoglobin normal at 15.0, platelet count normal at 372. BUN is normal at 16, creatinine normal at 1.16. His D-dimer is negative at 0.28 and his high-sensitivity troponin is 8. I feel this is greater than a 6-hour troponin and I do not feel that he requires serial enzymes. EKG obtained interpreted by myself demonstrates normal sinus rhythm with a sinus arrhythmia at [address] changes. No STEMI. Given his upper back pain/lower thoracic back pain on the right, CTA was performed and I reviewed the radiology report which shows no evidence of dissection or pulmonary embolism, no pneumonia or pneumothorax. Upon repeat examination, patient states he started having pain in the right upper quadrant of his abdomen, and when he pressed on there he had a left-sided pain. I obtained a CT of the abdomen and pelvis without contrast to help rule out ureterolithiasis or obstruction. I reviewed the radiology report which shows no evidence of an acute process in the abdomen either. Urinalysis was reviewed and there is no evidence of infection, I do not feel antibiotics are indicated. At this point in time, I am unsure as to the cause of his migrating pain, but I do not feel that narcotic pain medication is indicated, nor do I feel that he requires observation or admission. I feel he be discharged to follow-up with his primary care provider. Return instructions to the emergency department were reviewed. Disposition is discharged home in stable condition. History & Record Review Discussion w/independent historian: Patient Additional record(s) reviewed:: Prior ED visit Lab Data Attestation: I reviewed the patient's lab results. Labs: Laboratory Results - last 24 hr 03/22/23 03/22/23 11:07 11:50 WBC 11.4 H RBC 5.40 Hgb 15.0 Hct 47.0 MCV 87.0 MCH 27.8 MCHC 31.9 L RDW Std Deviation 42.0 RDW Coeff of Eliel 13.2 Plt Count 372 MPV 9.8 Immature Gran % (Auto) 0.300 Neut % (Auto) 78.4 H Lymph % (Auto) 12.9 L [place] % (Auto) 7.3 Eos % (Auto) 0.7 Baso % (Auto) 0.4 Absolute Neuts (auto) 9.0 H Absolute Lymphs (auto) 1.47 Nucleated RBC % 0 D-Dimer Quant (PE/DVT) 0.28 Sodium 139 Potassium 3.4 L Chloride 107 Carbon Dioxide 29.0 Anion Gap 3 L BUN 16 Creatinine 1.16 Estim Creat Clear Calc 73.93 Est GFR (MDRD) Af Amer 83 Est GFR (MDRD) Non-Af 69 BUN/Creatinine Ratio 13.8 Glucose 162 H Calcium 8.7 Total Bilirubin 0.50 AST 20 ALT 40 Alkaline Phosphatase 105 Troponin I High Sens 8 Total Protein 7.4 Albumin 3.9 Globulin 3.5 Albumin/Globulin Ratio 1.1 Lipase 54 Urine Color Yellow Urine Clarity Clear Urine pH 6.5 Ur Specific Donna 1.015 Urine Protein Negative Urine Glucose (UA) 250 H Urine Ketones Negative Urine Occult Blood 50 H Urine Nitrite Negative Urine Bilirubin Negative Urine Urobilinogen Normal Ur Leukocyte Esterase Negative Urine RBC 0-5 SEEN Urine WBC 0 SEEN Ur Squamous Epith Cells 0 SEEN Urine Bacteria 0 SEEN Urine Mucus 0 SEEN Radiography Diagnostic Testing: Clinical Impression(s) from Imaging Studies Chest CTA 03/22/23 10:56 IMPRESSION: Fatty position of the liver. Small hiatal hernia. No evidence of pulmonary embolism. Electronically Signed: Cayden Martinez MD at 12:42 EDT , Abdomen/Pelvis CT 03/22/23 12:20 IMPRESSION: Fatty infiltration of the liver. Status post cholecystectomy. No obstructive uropathy is seen. Electronically Signed: Cayden Martinez MD at 12:47 EDT , Discharge Plan Triage Chief Complaint: Flank Pain ED Provider: Saji Selby Dx/Rx/DC Orders Clinical Impression: Back pain, Abdominal pain Instructions: ED Back Pain (Acute or Chronic), ED Pain, Acute, Uncertain Cause, ED Abdominal Pain Unkn Cause Male... Prescriptions: No Action amlodipine 10 mg tablet 10 mg PO DAILY Qty: 10 Patient Comments: TAKE ONE TABLET BY MOUTH DAILY losartan 100 mg tablet 100 mg PO DAILY Qty: 30 Patient Comments: TAKE ONE TABLET BY MOUTH EVERY DAY fexofenadine 180 MG tablet 180 mg PO PRN PRN (Reason: Allergies) oxycodone-acetaminophen [oxycodone-acetaminophen] 1 TABLET tablet 1 tab PO Q4H PRN (Reason: pain) 4 Days Qty: 20 0RF ondansetron [ondansetron] 4 MG tablet 8 mg PO Q8H PRN PRN (Reason: Nausea) Qty: 20 0RF tamsulosin [Flomax] 0.4 mg capsule 0.4 mg PO DAILY Qty: 10 0RF hydrocodone-acetaminophen 5-300 mg tablet 1 tab PO Q4H PRN (Reason: pain) 3 Days Qty: 14 0RF Primary Care Provider: Tesha Vail Referrals: Tesha Vail DO [Primary Care Provider] - 1-2 Days if not improving Disposition Disposition: Home, Self Care
[2023-03-22 11:29] LABS: Absolute Lymphocyte Count 1.47 X10^3/uL (0.83-4.51); Basophil# 0.05 X10^3/uL; Basophil% 0.4 % (0-1); Eosinophil# 0.08 X10^3/uL; Eosinophils% 0.7 % (0-5); Lymphocyte # 1.47 X10^3/ul (0.83-4.51); Lymphocyte % 12.9 % (19-41); Mean Corp Hgb Conc 31.9 g/dL (32-36); Mean Corpuscular Hgb 27.8 pg (27.0-32.0); Mean Platelet Vol. 9.8 fl (6.2-12.0); Monocyte# 0.84 X10^3/uL; Monocyte% 7.3 % (0-10); NRBC Flagged by Analyzer 0 % (0-5); Neutrophil # 8.95 X10^3/uL (2.7-7.7); Neutrophil % 78.4 % (47-70); Platelet Count 372 K/mm3 (150-450); RBC Distribution Width CV 13.2 % (11.6-14.6); White Blood Count 11.4 K/mm3 (4.4-11.0)
[2023-03-22 11:41] LABS: D-Dimer Quantitative (DVT/PE) 0.28 FEU/ug/m (0.27-0.49)
[2023-03-22 11:50] LABS: ALB/GLOB Ratio 1.1 RATIO (0.9-2.4); AST(SGOT) 20 U/L (15-37); Alanine Aminotransfer ALT/SGPT 40 U/L (16-61); Albumin, Serum 3.9 g/dL (3.2-5.0); Alkaline Phosphatase 105 U/L (45-117); Anion Gap 3 (5-15); BUN 16 mg/dL (7-18); BUN/Creat Ratio 13.8 RATIO (10-20); Calcium,Total 8.7 mg/dL (8.5-10.1); Chloride 107 mmol/L (98-107); Creatinine, Serum 1.16 mg/dL (0.70-1.30); EST Glomerular Filtration Rate 69 mL/min (>60); Est Glom Filt Rate - Afr Amer 83 mL/min (>60); Estimated Creatinine Clearance 73.93 ml/min; Globulin 3.5 g/dL (2.2-4.2); Glucose 162 mg/dL (74-106); Lipase 54 U/L (13-75); Potassium 3.4 mmol/L (3.5-5.1); Protein, Total 7.4 g/dL (6.4-8.2); Sodium Level 139 mmol/L (136-145); Troponin-I HS 8 pg/mL (3.0-78.0)
[2023-03-22 11:57] LABS: Bacteria 0 SEEN /hpf (None Seen); Mucous, Urine 0 SEEN /hpf (<or=2+); Squamous Epithelial Cells - UA 0 SEEN /hpf (0-5); White Blood Cells 0 SEEN /hpf (0-5)
[2023-03-22 12:07] LABS: Color, Urine Yellow (Yellow); Glucose, Dipstick 250 mg/dl (Normal); Ketone-Dipstick Negative (Negative); Leukocyte Esterase-Dipstick Negative /ul (Negative); Nitrite-Dipstick Negative (Negative); Occult Blood-Urine 50 /ul (Negative); Protein-Dipstick Negative (Negative); Specific Gravity, Urine 1.015 (1.002-1.030); Urine Bilirubin Dipstick Negative (Negative); Urine Clarity Clear (Clear); Urine Urobilinogen Normal (Normal); Urine pH 6.5 (5.0 - 8.0)
[2023-03-22 12:18] LABS: Red Blood Cells-Urine 0-5 SEEN /hpf (0-5)
--- NOTE | 2023-03-22 12:20 | CT_ITS ---
STUDY: CT ABDOMEN AND PELVIS WITHOUT CONTRAST REASON FOR EXAM: Male, 57 years old. RIGHT FLANK PAIN. IV CONTRAST GIVEN EARLIER RADIATION DOSAGE (If Supplied By Facility): CTDIvol = ( 19.37 ) mGy, DLP = ( 1072.90 ) mGycm TECHNIQUE: Transaxial images were obtained from the dome of the diaphragm to the symphysis pubis without oral contrast, and without intravenous contrast. Sagittal and coronal images were reconstructed. Individualized dose optimization techniques were used for this CT. COMPARISON: None. FINDINGS: The visualized lung bases are unremarkable. The visualized portions of the heart are within normal limits. There is decreased attenuation of the liver consistent with steatosis. The patient is status post cholecystectomy. Normal spleen. Normal pancreas. Normal bilateral adrenal glands. Normal right kidney. Normal left kidney. There is a small hiatal hernia. Normal small intestine. There are scattered colonic diverticula consistent with diverticulosis. The appendix is visualized and appears normal. Normal abdominal aorta. Normal inferior vena cava. Normal retroperitoneum. Normal urinary bladder. There is a small umbilical hernia containing fat. Minimal anterior listhesis of L5 on S1 due to bilateral spondylolysis of the pars interarticularis of the L5 vertebrae. CT/Abdomen/Pelvis without Cont IMPRESSION: Fatty infiltration of the liver. Status post cholecystectomy. No obstructive uropathy is seen. Electronically Signed: Cayden Martinez MD at 12:47 EDT ,
[2023-03-22] MEDS: 0.9% Normal Saline 1,000 ML 1000 ML IV (12:25)
[2023-03-22] MEDS: Ketorolac 30 MG/ML Syringe IV (12:25)
[2023-03-22 12:46] VITALS: BP 168/94
== END 2023-03-22 13:48 | disposition home or self-care (01) ==
PROVIDERS: Emergency Provider Emergency Medicine; PCP Internal Medicine; Visit Provider Emergency Medicine
DX: R10.9 Unspecified abdominal pain (principal); I10 Essential (primary) hypertension; Z90.49 Acquired absence of other specified parts of digestive tract; Z79.899 Other long term (current) drug therapy
CPT/HCPCS: 71275; 74176; 80053; 81001; 83690; 84484; 85025; 85379; 93005; 99284; J7030; Q9967; A4216

== ENCOUNTER 2024-02-14 07:18 | Day surgery (SDC) | payer OTHER, SELFPAY ==
[2024-02-14] VITALS (8 sets, daily range): BP systolic 103–134; BP diastolic 58–87; PULSE 48–65; RESP 16; TEMP 36.1–36.6; O2SAT 97–100; BMI 29.2
[2024-02-14] MEDS: Lactated Ringers 1,000 ML 15 ML IV (07:35)
[2024-02-14 07:53] LABS: Bedside Glucose 101 mg/dL (74-106)
--- NOTE | 2024-02-14 08:00 | PRE.ANES_ITS ---
ASA Classification* ASA Classification ASA Classification: 2 Assessment & Plan Anesthesia* Anesthesia Assessment Anesthesia Assessment: Discussed sedation and/or anesthesia options, risks, benefits, and alternatives with patient/parents/legal guardian/POA. Questions invited. The patient/parents/legal guardian/POA seems to understand and agrees to proceed with anesthesia plan. Reviewed the physical assessment, medical history, allergy history and patient home medications list prior to surgery/procedure/anesthetic and documented any changes. Performed airway and anesthesia risk assessments. 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 When Was Last Pacemaker Check QUESTION #4 FULL TEXT: You/Your Family Experience fever (hyperthermia) with Anesthesia Last Oral Intake Last Oral intake: Last Oral Intake NPO since 06:45 02/14/24 07:30 Meds taken in AM with sips of water? Meds patient instructed to take am of surgery PONV PONV - farmworker general: PONV - farmworker general Female No 02/07/24 11:05 HX of Motion Sickness No 02/07/24 11:05 HX of N/V After Surgery No 02/07/24 11:05 Non-Smoker Yes 02/07/24 11:05 Duration of Surgery greater No 02/07/24 11:05 than 60 minutes Number of Risk Factors 1 02/07/24 11:05 PONV Score Low Risk 02/07/24 11:05 Height & Weight Height & Weight: Anesthesia: Height & Weight Height 5 ft 11 in 02/14/24 07:30 Weight: 95 kg 02/14/24 07:30 Body Mass Index (BMI) 29.2 02/14/24 07:30 Respiratory Assessment Respiratory Assessment - farmworker general: Respiratory Tract Infection Hx - farmworker general Hx Respiratory Tract Infection No 02/07/24 11:05 STOP Sleep Apnea STOP Sleep Apnea - farmworker general: STOP Sleep Apnea - farmworker general Hx Hypertension Yes: CONTROLLED WITH MED 02/07/24 11:05 Hx Sleep Apnea No 02/07/24 11:05 CPAP BIPAP Do you snore loudly (louder No 02/07/24 11:05 than talking or can be heard Do you often feel tired/ No 02/07/24 11:05 fatigued/ sleepy during daytime? Has anyone observed you stop No 02/07/24 11:05 breathing during sleep? STOP Results Negative 02/07/24 11:05 QUESTION #5 FULL TEXT : Do you snore loudly (louder than talking or can be heard through closed doors)? 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 Specify any problems Hx of Preganancy in last 3 N/A 02/07/24 11:05 Months Nurse Filling Out Transfusion NBUCHER 02/07/24 11:05 & Questions: Date: 02/07/24 02/07/24 11:05 Time: 11:05 02/07/24 11:05 Patient unable to answer at this time (ie. confused, unrespo /Reproduction History /Reproductive History - farmworker general: /Reproductive Hx- farmworker general Hx Now No 02/07/24 11:05 Gestational Age (in weeks): EDC: Hx Hx Para Hx Section SAB No 02/07/24 11:05 Active Medications Active Medications: Current Medications Generic Name Dose Route Start Last Admin Trade Name Freq PRN Reason Stop Dose Admin Lactated Ringer's 1,000 mls @ 15 mls/hr 02/14/24 07:30 02/14/24 07:35 IV 15 mls/hr .Q48H KRISTIE Administration Anesthesia Focused Assessment* Temperature: 97.8 F Pulse Rate: 65 Blood Pressure: 134/87 Respiratory Rate: 16 Pulse Ox: 98 Airway Assessment Mouth opens: >3 cm Mallampati Score: I Teeth Condition: Chipped/Broken (Checked lower left molar) and Missing (#11) Neck Range of motion (ROM): Full ROM Focused Labs Anesthesia Preop lab: CBC WBC 11.4 K/mm3 (4.4-11.0) H 03/22/23 11:07 RBC 5.40 M/mm3 (4.6-6.2) 03/22/23 11:07 Hgb 15.0 g/dL (13.0-16.5) 03/22/23 11:07 Hct 47.0 % (40-54) 03/22/23 11:07 Plt Count 372 K/mm3 (150-450) 03/22/23 11:07 CHEMISTRY Potassium 3.4 mmol/L (3.5-5.1) L 03/22/23 11:07 Sodium 139 mmol/L (136-145) 03/22/23 11:07 BUN 16 mg/dL (7-18) 03/22/23 11:07 Creatinine 1.16 mg/dL (0.70-1.30) 03/22/23 11:07 Glucose 162 mg/dL (74-106) H 03/22/23 11:07 COAG Lab additional comments: Fingerstick glucose this morning was 101 Review of Systems (Anesthesia) ROS Narrative System reviewed and no additional complaints, except as documented. [facility] Medical History History of steroid therapy Diabetes High cholesterol Heartburn Non-smoker Calculus of kidney Type 2 diabetes mellitus Hypertension Subcutaneous mass Ventral incisional hernia without obstruction or gangrene Gallstones Umbilical hernia Hemorrhoids Abdominal pain Arthritis Gout Tingling Numbness Home Medications ?Medication ?Instructions ?Recorded ?Last Taken ?Type amlodipine 10 mg tablet 10 mg PO DAILY #10 tabs 05/23/19 02/14/24 History losartan 100 mg tablet 100 mg PO DAILY #30 tabs 05/23/19 02/14/24 History hydralazine 25 mg tablet 25 mg PO TID 02/05/24 02/14/24 History melatonin 5 mg tablet 5 mg PO HS PRN sleep 02/05/24 Unknown History metformin 500 mg tablet 500 mg PO DAILY 02/05/24 Unknown History Allergy/AdvReac Type Severity Reaction Status Date / Time ofloxacin (From Floxin) Allergy Other Verified 02/14/24 07:30 Family History Father Heart disease Prostate cancer Hypertension Sister Asthma Thyroid cancer Mother Hypertension High cholesterol Surgical History History of arthroscopy of knee History of cholecystectomy History of breast biopsy (~09/2019) History of inguinal hernia repair (~08/2019) Hx of ingrown nail Social History household members: spouse current occupational status: employed Smoking Status: Never smoker second hand exposure: No alcohol intake: current alcohol intake frequency: holidays/special occasions only substance use type: does not use caffeine: Yes what type of physical activity do you participate in: none frequency: does not exercise
--- NOTE | 2024-02-14 08:15 | COLBX_PTH ---
PATIENT: ARTI SQUIRES LOC: EN U#:[id number] AGE/SX: 58/M ROOM: RE02/14/[address]: Dr. Abe Contreras DO : 1965 BED: DIS: 02/14/2024 SPEC #: [id number] RECD: 02/14/24 13:00 STATUS: AMPARO GOMEZTonia #: [id number] LINDA: 02/14/24 08:[address]: Abe Contreras DEPT: SURGICAL PATHOLOGY RECD BY: Morenita Smith ENTERED: 02/14/24 14:07 SP TYPE: COLON BX OTHR DR: Dr. Tesha Vail DO Tissues: Rectum, NOS Procedures: Surgery Specimen Level IV HEADER OPERATION: Colonoscopy, polypectomy PRE-OP DIAGNOSIS: Colon screening TISSUE SUBMITTED: Rectal polyp MICROSCOPIC DIAGNOSIS Rectal polyp, biopsy: Fragments of colonic mucosa with focal hyperplastic change. AM/mr 02/15/2024 MICROSCOPIC DESCRIPTION Slides are reviewed. GROSS DESCRIPTION Received in fixative is one container labeled with the patient's name and designated Rectal polyp. The specimen consists of one irregular fragment of light wilkinson soft tissue that measures 0.3 x 0.2 x 0.1 cm. The specimen is totally submitted in one cassette. AM/mr 02/14/2024 TC:5 CPT:37332
--- NOTE | 2024-02-14 08:23 | PCM.HP.STD ---
[facility] - General General Date of Admission: 02/14/24 Date of Service: 02/14/24 Chief Complaint: Screening colonoscopy HPI Narrative ARTI SQUIRES, is a 58 M who presents today for screening colonoscopy. He has not had a colonoscopy in the past. He is not having abdominal pain. He does not have any bloating. He denied any chest pain or shortness of breath. He has past medical history of arthritis, gout, neuropathy and history of cholelithiasis. [facility] Medical History History of steroid therapy Diabetes High cholesterol Heartburn Non-smoker Calculus of kidney Type 2 diabetes mellitus Hypertension Subcutaneous mass Ventral incisional hernia without obstruction or gangrene Gallstones Umbilical hernia Hemorrhoids Abdominal pain Arthritis Gout Tingling Numbness Home Medications ?Medication ?Instructions ?Recorded ?Last Taken ?Type amlodipine 10 mg tablet 10 mg PO DAILY #10 tabs 05/23/19 02/14/24 History losartan 100 mg tablet 100 mg PO DAILY #30 tabs 05/23/19 02/14/24 History hydralazine 25 mg tablet 25 mg PO TID 02/05/24 02/14/24 History melatonin 5 mg tablet 5 mg PO HS PRN sleep 02/05/24 Unknown History metformin 500 mg tablet 500 mg PO DAILY 02/05/24 Unknown History Allergy/AdvReac Type Severity Reaction Status Date / Time ofloxacin (From Floxin) Allergy Other Verified 02/14/24 07:30 Family History Father Heart disease Prostate cancer Hypertension Sister Asthma Thyroid cancer Mother Hypertension High cholesterol Surgical History History of arthroscopy of knee History of cholecystectomy History of breast biopsy (~09/2019) History of inguinal hernia repair (~08/2019) Hx of ingrown nail Social History household members: spouse current occupational status: employed Smoking Status: Never smoker second hand exposure: No alcohol intake: current alcohol intake frequency: holidays/special occasions only substance use type: does not use caffeine: Yes what type of physical activity do you participate in: none frequency: does not exercise ROS Review of Systems ROS Unobtainable: other Constitutional Constitutional: Denies fatigue, fever(s), poor appetite, weight gain or weight loss ENT HEENT: Denies mouth lesions Cardiovascular Cardiovascular: Denies abdominal bloating, abdominal edema or abdominal pain Respiratory/Chest Respiratory/Chest: Denies change in mental status, change in phlegm color, chest congestion or chest tightness Gastrointestinal Gastrointestinal: Denies belching, bloating, change in bowel habits, change in stool character, chewing difficulty, coffee ground emesis, constipation, cramping, diarrhea, dyspepsia, dysphagia, early satiety, excessive flatus, fecal incontinence, heartburn, hematemesis, hematochezia, hemorrhoids, loose stools, melena, nausea, odynophagia, rectal bleeding, tenesmus, vomiting or weight changes Genitourinary Genitourinary: Denies abdominal discomfort, burning urination or itching Musculoskeletal Musculoskeletal: Reports as per HPI; Denies muscle weakness or myalgias Integumentary Integumentary: Denies jaundice Neurologic Neurologic: Denies lack of coordination or weakness Psychiatric Psychiatric: Denies confusion, depression, memory loss, mood swings, paranoia or suicidal ideation Endocrine Endocrinology: Denies systems reviewed and no addt'l complaints, except as documented Hematologic/Lymphatic Hematologic/Lymphatic: Denies anemia, easy bleeding, easy bruising or lymphadenopathy Allergic/Immunologic Allergic/Immunologic: Denies systems reviewed and no addt'l complaints, except as documented Vital Signs Vital Signs Vital Signs: 02/14/24 07:30 02/14/24 07:30 02/14/24 08:04 Temperature 97.8 F 97.8 F Temperature Source Temporal Pulse Rate 65 65 Respiratory Rate 16 16 Respiratory Pattern Normal Blood Pressure 134/87 H 134/87 H Blood Pressure Mean 102 Blood Pressure Source Monitor Blood Pressure Position Semi-Fowlers Blood Pressure Location Left Arm Pulse Ox 98 98 Oxygen Delivery Method Room Air Weight Weight: 209 lb 7.026 oz Body Mass Index (BMI) 29.2 Physical Exam Const alert, oriented x3, no apparent distress, healthy appearing and well nourished General Appearance: cooperative, comfortable, well kempt and well developed Orientation / Consciousness: awake and oriented to person HEENT Head and Scalp: normocephalic and atraumatic Face and Sinus: normal facial exam Mouth: oral and palatal mucosa normal Eyes General Eye: normal appearance of both eyes Neck full ROM Lymph Lymphatic: no lymphadenopathy noted Chest inspection of chest normal Resp normal respiratory effort and no use of accessory muscles Cardio regular rate and regular rhythm GI normal to inspection, nondistended, normoactive bowel sounds, soft to palpation, non-tender, non-distended and no masses Auscultation: normoactive bowel sounds Palpation: soft Percussion: normal to percussion Rectal Exam: visual inspection normal and normal sphincter tone no CVA tenderness Back/Spine no CVA tenderness and normal ROM Extremity normal to inspection Peripheral Pulses: Yes pulses 2+ throughout Skin no rashes or lesions noted General Skin Exam: no breakdown, elasticity normal and turgor normal Neuro oriented x3 Motor Exam: strength 5/5 throughout Psych mental status grossly normal Appearance: grossly normal Attitude: calm Activity / Motor Behavior: appropriate eye contact Speech: normal speech Thought Process: normal thought process Thought Content: normal thought content Attention / Concentration: attention grossly intact Memory / Cognition: memory grossly intact Insight: insight good Judgement: judgement good Results Lab / Micro Data Labs: Laboratory Results - last 24 hr 02/14/24 07:33: POC Glucose 101 Assessment & Plan Assessment/Plan (1) Encounter for screening for malignant neoplasm of colon: PLAN: He was explained alternatives, risk, benefits including not withstanding bleeding, infection, sepsis, perforation, need for mergers and . He will have an ASA of 3.
--- NOTE | 2024-02-14 08:50 | PCM.POST.ANE ---
Anesthesia: Postop Eval I Current Vital Signs Temperature: 97.3 F Pulse Rate: 61 Blood Pressure: 106/60 Respiratory Rate: 16 Pulse Ox: 97 Oxygen Delivery Method: Room Air Assessment Airway patent: Yes Spontaneous unlabored respirations: Yes Mental status: Asleep nausea: No Vomiting: No Anesthesia Complication: No Fluid Hydration Crystalloid volume administer (ml): 600 Total IV fluid infused: 600 Progress Note Anesthesia document: Postop Eval 1 completed: Yes
--- NOTE | 2024-02-14 08:54 | OP.CCLET_ITS ---
02/14/2024 Tesha Vail [address] [place] [address] Re : Colonoscopy procedure for Yaw Williamanson Dear Dr. Vail This procedure was performed on Wednesday, February 14, 2024. My impressions and recommendations are as follows: Impressions : - Diverticulosis in the recto-sigmoid colon. - One 4 mm polyp in the sigmoid colon, removed with a jumbo cold forceps. Resected and retrieved. Recommendations : - Repeat colonoscopy in 5 years for surveillance. - Continue present medications. My findings are described in the full procedure note, which is enclosed. If I can be of further assistance, please feel free to contact me at . Sincerely, Abe Contreras DO 02/14/2024 8:54:19 AM This report has been signed electronically.
--- NOTE | 2024-02-14 08:54 | OP.COLON_ITS ---
Patient Name: Yaw Walters Procedure Date: 02/14/2024 8:21 AM Date of : 1965 Age: 58 Procedure: Colonoscopy Indications: Screening for colorectal malignant neoplasm Providers: Abe Contreras DO Referring MD: Tesha Vail Medicines: Monitored Anesthesia Care Patient Profile: This is a 58 year old male. Refer to note in patient chart for documentation of history and physical. Last Colonoscopy: none. The patient's first colonoscopy is today. Complications: No immediate complications. Procedure: Pre-Anesthesia Assessment: - Prior to the procedure, a History and Physical was performed, and patient medications and allergies were reviewed. The patient is competent. The risks and benefits of the procedure and the sedation options and risks were discussed with the patient. All questions were answered and informed consent was obtained. Patient identification and proposed procedure were verified by the physician in the pre-procedure area. Mental Status Examination: alert and oriented. Airway Examination: normal oropharyngeal airway and neck mobility. Respiratory Examination: clear to auscultation. CV Examination: normal. Prophylactic Antibiotics: The patient does not require prophylactic antibiotics. Prior Anticoagulants: The patient has taken no anticoagulant or antiplatelet agents. ASA Grade Assessment: II - A patient with mild systemic disease. After reviewing the risks and benefits, the patient was deemed in satisfactory condition to undergo the procedure. The anesthesia plan was to use monitored anesthesia care (MAC). Immediately prior to administration of medications, the patient was re-assessed for adequacy to receive sedatives. The heart rate, respiratory rate, oxygen saturations, blood pressure, adequacy of pulmonary ventilation, and response to care were monitored throughout the procedure. The physical status of the patient was re-assessed after the procedure. After I obtained informed consent, the scope was passed under direct vision. Throughout the procedure, the patient's blood pressure, pulse, and oxygen saturations were monitored continuously. The pediatric colonoscope was introduced through the anus and advanced to the cecum, identified by appendiceal orifice and ileocecal valve. The colonoscopy was performed without difficulty. The patient tolerated the procedure well. The quality of the bowel preparation was adequate. The ileocecal valve, appendiceal orifice, and rectum were photographed. Scope In: 8:31:49 AM Scope Withdrawal Time 0 hours 11 minutes 58 seconds Scope Out: 8:46:05 AM Total Procedure Duration Time 0 hours 14 minutes 16 seconds Findings: The perianal and digital rectal examinations were normal. A few small-mouthed diverticula were found in the recto-sigmoid colon. A 4 mm polyp was found in the sigmoid colon. The polyp was sessile. The polyp was removed with a jumbo cold forceps. Resection and retrieval were complete. Verification of patient identification for the specimen was done. Estimated blood loss was minimal. Impression: - Diverticulosis in the recto-sigmoid colon. - One 4 mm polyp in the sigmoid colon, removed with a jumbo cold forceps. Resected and retrieved. Recommendation: - Repeat colonoscopy in 5 years for surveillance. - Continue present medications. Procedure Code(s): --- Professional --- 45278, Colonoscopy, flexible; with biopsy, single or multiple CPT copyright 2021 [employer]. All rights reserved. The codes documented in this report are preliminary and upon dry finisher review may be revised to meet current compliance requirements. Abe Contreras DO 02/14/2024 8:54:19 AM This report has been signed electronically. Number of Addenda: 0 Note Initiated On: 02/14/2024 8:21 AM
--- NOTE | 2024-02-14 12:12 | PCM.POSTANE2 ---
Anesthesia Postop Eval I Sum Postop Eval Completion status Anesthesia document: Postop Eval 1 completed: Yes Anesthesia Postop Eval I Summary Anesthesia Postop Eval I Summary: Anesthesia Postop Eval I: Assessment Summary Airway patent Yes 02/14/24 08:54 [email or web address] Spontaneous unlabored Yes 02/14/24 08:54 [email or web address] respirations Mental status Asleep 02/14/24 08:54 [email or web address] nausea No 02/14/24 08:54 [email or web address] Vomiting No 02/14/24 08:54 [email or web address] Anesthesia Postop Eval I: Fluid Summary Crystalloid volume administer 600 02/14/24 08:54 [email or web address] (ml) Colloids volume administered ( ml) Blood Product volume administered (ml) Total IV fluid infused 600 02/14/24 08:54 [email or web address] Anesthesia Postop Eval I: Summary Notes Anesthesia Complication No 02/14/24 08:54 [email or web address] Anesthesia Complication Comment: Post-operative progress note Anesthesia: Postop Eval II Evaluation Mental status: Awake Pain Level: 0 nausea: No Vomiting: No Complications Anesthesia Complication: No
== END 2024-02-14 09:30 | disposition home or self-care (01) ==
LOC: EN 07:20 → AC 07:20
PROVIDERS: PCP Internal Medicine; Referring Provider Internal Medicine; Visit Provider Internal Medicine Gastroenterology
PROC: 0DJD8ZZ Inspection of Lower Intestinal Tract, Via Natural or Artificial Opening Endoscopic (ICD-10-PCS; CPT 45378; principal; 2024-02-14 08:10)
DX: Z12.11 Encounter for screening for malignant neoplasm of colon (principal); E11.40 Type 2 diabetes mellitus with diabetic neuropathy, unspecified; K63.5 Polyp of colon; I10 Essential (primary) hypertension; E78.00 Pure hypercholesterolemia, unspecified; Z90.49 Acquired absence of other specified parts of digestive tract; K57.30 Diverticulosis of large intestine without perforation or abscess without bleeding
CPT/HCPCS: 45380; 82962; 88305; J7120; J2405